=== PATIENT | female | born 1955 | race Caucasian/White ===

== ENCOUNTER 2019-12-22 09:15 | Observation (INO) | payer BC, SELFPAY ==
[2019-12-22] VITALS (13 sets, daily range): BP systolic 104–148; BP diastolic 69–92; PULSE 58–138; RESP 12–20; TEMP 35.7–36.6; O2SAT 97–100; BMI 24.5
--- NOTE | ~2019-12-22 | XR_ITS ---
XR chest 2V DATE: 12/22/2019 09:56 INDICATION: Palpitations TECHNIQUE: PA and lateral views COMPARISON: 10/25/2013 PA and lateral chest FINDINGS: There is old pulmonary granulomatous disease. No pulmonary infiltrate or consolidation, ple ural effusion or pulmonary vascular congestion or pneumothorax is detected. Normal heart size. No hilar or mediastinal enlargement. There is minimal aortic unfolding. There is degenerative spurring of the thoracic spine. IMPRESSION: No active cardiopulmonary disease Reviewed, dictated and finalized at location A.
--- NOTE | 2019-12-22 09:19 | ECG_ITS ---
Measurements Intervals [place] Rate: 135 P: [place]: 0 QRS: 51 QRSD: 169 T: 0 QT: 229 QTc: 343 Interpretive Statements ATRIAL FLUTTER/TACHYCARDIA WITH RAPID VENTRICULAR RESPONSE INTRAVENTRICULAR CONDUCTION DELAY ST-T WAVE ABNORMALITY IN ANTEROLAT/INF LEADS- CONSIDER ISCHEMIA BASELINE ARTIFACT- I, II, III, AVL ABNORMAL ECG Electronically Signed On 12-22-2019 16:31:33 CDT by Umberto Sepulveda D.O.
--- NOTE | 2019-12-22 09:26 | ED.ARRPALP ---
HPI - Arrhythmia/Palpitations General Chief Complaint: Arrhythmia/Palpitations Stated Complaint: Palpatations Time Seen by Provider: 12/22/19 09:26 Source: patient Mode of arrival: ambulatory Limitations: no limitations History of Present Illness HPI narrative: A 64 y/o female presents to the ED with c/o heart palpitations since 6:30 AM this morning. Pt states that she awoke with her symptoms and measured her HR to be in the 130s. Pt called her PCP who advised her to present to the ED for evaluation. Pt is unsure if her heartbeat was irregular at the time stating it just felt like something wasn't working right. Pt does not have a history of similar episodes. Pt also c/o a HUNTLEY that began shortly after the palpitations began. She denies CP, SOB, a fever, and any recent changes in her medications. Onset (ago): hour(s) (6:30 AM) Context: awoke with symptoms Associated symptoms: other (HUNTLEY) Related Data Home Medications Medication Instructions Recorded Confirmed alprazolam [Xanax] 0.25 mg PO TID PRN 12/22/19 12/22/19 alprazolam [Xanax] See Rx Instructions .ROUTE .COMPLEX 12/22/19 12/22/19 diclofenac sodium 75 mg PO Q12H 12/22/19 12/22/19 tramadol 50 mg PO Q12H 12/22/19 12/22/19 Allergies Allergy/AdvReac Type Severity Reaction Status Date / Time codeine Allergy Unknown Unknown Verified 12/22/19 14:28 hydrocodone Allergy Unknown Unknown Verified 12/22/19 14:28 animal dander Allergy Itching Verified 12/22/19 14:29 Review of Systems Review of Systems: All systems reviewed & are unremarkable except as noted in HPI and below Constitutional: Constitutional: Denies fever(s) Cardiovascular: Cardiovascular: Denies chest pain Comments: Reports: heart palpitations Respiratory: Respiratory: Denies dyspnea Neurologic: Reports headache(s) [facility] Past Medical History Medical History (Updated 12/22/19 @ 15:38 by Chip Harris MD) Anxiety Depression Hypothyroidism Osteoarthritis Osteoporosis Seasonal allergies Surgical History Surgical History (Updated 12/22/19 @ 15:05 by Clair Pizarro PA-C) History of hysterectomy History of left breast biopsy Pathology revealed benign fibroadenoma. History of repair of congenital cleft palate History of tubal ligation Family History Family History Father Family history of alcoholism Patient's father is Family history of osteoporosis Depression Family history of heart disease in male family member before age 55, Onset Age: 65 Mother Patient's mother is Depression Patient's mother is in good health, Onset Age: 51 Family history of alcoholism Family history of arthritis Sibling Patient's brother is Social History Social History (Updated 12/22/19 @ 15:09 by Clair Pizarro PA-C) Social History: The patient lives in [place]. 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 She designates her son, Shay, and [id number] Ene, as her surrogate decision makers and she wishes to be a full code. She is a lifelong nonsmoker and denies alcohol and drug abuse. Spiritual care concerns: No Agree to blood products: Yes Comments PCP: Dr. Juarez Exam Narrative: Exam Narrative: Constitutional: healthy appearing, no acute distress, well nourished HENMT: lip normal, MM moist Respiratory: normal respiratory effect, clear to auscultation bilaterally Cardiovascular: tachycardic, regular rhythm, no murmur GI: soft, non-tender, normal bowel sounds Back/Spine/Pelvis: Full ROM Skin: normal color, dry skin, warm Neurological: A&Ox3, normal speech Extremities: full ROM Psych: mental status grossly normal, normal affect Course Reevaluation(s) Reevaluation #1: Discussed case with Dr. Carrasco and he will see the pt. Date: 12/22/19 Time: 10:46 Reevaluation #2: Discussed case with Dr. Heck and accepted admission. Date: 12/22/19 Time: 10:48 Vital Sign
[2019-12-22 09:43] LABS: Basophils Percent Auto 0.4 % (0.2-1.2); Eosinophils Absolute Auto 0.1 K/mm3 (0-0.3); Eosinophils Percent Auto 1.9 % (0-4.4); Hematocrit 44.7 % (37.0-47.0); Hemoglobin 14.3 g/dL (12.0-15.0); Immature Granulocyte Absolute 0.01 K/mm3 (0.00-0.031); Immature Granulocyte Percent A 0.2 % (0-0.5); Lymphocytes Absolute Auto 1.39 K/mm3 (0.9-3.2); Lymphocytes Percent Auto 29.3 % (18.3-44.2); Mean Corpuscular Hemoglobin 31.4 pg (26-34); Mean Corpuscular Volume 98.2 fl (80-100); Mean Platelet Volume 11.1 fl (7.4-10.4); Monocytes Absolute Auto 0.4 K/mm3 (0.1-0.6); Monocytes Percent Auto 7.4 % (2.6-8.5); Neutrophils Absolute Auto 2.9 K/mm3 (1.3-6.7); Neutrophils Percent Auto 60.8 % (45.5-73.1); Platelet Count Result 210 k/mm3 (150-375); Red Blood Count 4.55 M/mm3 (4.2-5.4); Red Cell Distribution Width 13.3 % (11.5-14.5); White Blood Count 4.8 K/mm3 (4.5-10.0)
[2019-12-22 09:55] LABS: INR 0.9; Prothrombin Time 12.2 Seconds (11.1-14.7)
[2019-12-22 09:56] LABS: Blood Urea Nitrogen 17 mg/dL (7-17); Calcium 9.5 mg/dL (8.4-10.2); Carbon Dioxide 28 mmol/L (22-30); Chloride 105 mmol/L (98-107); Estimated CRCL calculation 62 ml/min; Estimated Glomerular Filt Rate > 60; Glucose 105 mg/dL (65-105); Partial Thromboplastin Time 36.2 SECONDS (22.3-36.8); Potassium 3.8 mmol/L (3.4-5.0); Sodium 139 mmol/L (137-145)
[2019-12-22] MEDS: ASPIRIN 81 MG CHEWABLE TABLET 324 MG PO (10:01)
[2019-12-22 10:08] LABS: Troponin I < 0.012 ng/mL (0.000-0.034)
[2019-12-22 12:59] LABS: Troponin I 0.012 ng/mL (0.000-0.034)
[2019-12-22] MEDS: ACETAMINOPHEN 500 MG TABLET 1000 MG PO (13:08)
--- NOTE | 2019-12-22 14:37 | ADMGEN ---
This patient, Sunni Haro, was admitted to IMU Room 213-01 @ 1340. Monitor on SR 80's. IV diltiazem infusing at 5mg/hr ; denies any pain at this time. Patient/to hospital policies and general routines including ID bracelet, bed and alarms, visiting hours, pain management, procedures, bathroom and other care routines, personal items, smoking policy, room service/diet, and visiting hours. Valuables list has been completed. Information on how to activate the Rapid Response Team has been discussed. Patient encouraged to report perceived risks to care and to ask questions if they do not understand what they are told or what they should do.
--- NOTE | 2019-12-22 15:00 | ECG_ITS ---
Measurements Intervals [place] Rate: 73 P: 48 [place]: 135 QRS: 48 QRSD: 94 T: 27 QT: 365 QTc: 404 Interpretive Statements SINUS RHYTHM BORDERLINE ST-T WAVE ABNORMALITY- INFERIOR LEADS BASELINE ARTIFACT- I, II, III, AVR, AVL, AVF BORDERLINE ECG Electronically Signed On 12-22-2019 16:36:01 CDT by Umberto Sepulveda D.O.
--- NOTE | 2019-12-22 15:30 | PM.IMHP ---
H&P: HPI History of Present Illness Chief complaint: Palpitations. Narrative: Sunni Haro is a 64 year old female with hypothyroidism and anxiety who presented to the emergency department earlier this morning via private vehicle from home for evaluation of palpitations. She awoke this morning at approximately 06:30 with palpitations and fluttering in her chest and throat. She used her 's pulse oximeter and notes that her heartbeat was irregular, 130-150 beats per minute. Very rarely over the years she has what she describes as a ?skipped beat? but this was different today. She had no other symptoms with that, specifically denying lightheadedness, dizziness, chest pain, pleuritic pain, shortness of breath, nausea, and sweats. On arrival to the emergency department, she was found to be in atrial fibrillation with rapid ventricular response and has since converted to a normal sinus rhythm after being started on a Cardizem drip. She has no history of atrial fibrillation. She has not had any recent change in medications and TSH level today is within normal limits. No significant alcohol intake. She does not really drink caffeinated beverages but does take 1/2 of a caffeine pill most days, for unclear reasons. She reports feeling increasingly stressed and anxious over the last 2 days, but cannot pinpoint why she has felt that way. Review of Systems Review of Systems: Narrative: Twelve systems were reviewed with pertinent positives and negatives as per HPI. She is complaining of a pretty significant posterior headache, without much improvement after taking Tylenol. She has a longstanding history of headaches however they ceased after she started menopause. No numbness or tingling. She denies focal weakness. No fever, chills, or sweats. No recent cold or flu symptoms. Weight has remained stable. No concerns for sleep apnea. She has occasional lower extremity edema, which resolves by morning. No known history of cardiac disease. No exertional chest pain or shortness of breath. Except as documented, all other systems were reviewed and are negative. [facility] Past Medical History Medical History (Updated 12/22/19 @ 21:12 by Clair Pizarro PA-C) Anxiety Depression GERD (gastroesophageal reflux disease) Hypothyroidism Osteoarthritis Osteoporosis Seasonal allergies Surgical History Surgical History (Updated 12/22/19 @ 15:05 by Clair Pizarro PA-C) History of hysterectomy History of left breast biopsy Pathology revealed benign fibroadenoma. History of repair of congenital cleft palate History of tubal ligation Family History Family History Father Family history of alcoholism Patient's father is Family history of osteoporosis Depression Family history of heart disease in male family member before age 55, Onset Age: 65 Mother Patient's mother is Depression Patient's mother is in good health, Onset Age: 51 Family history of alcoholism Family history of arthritis Sibling Patient's brother is Social History Social History (Updated 12/22/19 @ 21:10 by Clair Pizarro PA-C) Social History: The patient lives in [place] with her , Kristopher. 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 She designates her son, Shay as her surrogate decision makers and she wishes to be a full code. She is a lifelong nonsmoker and denies alcohol and drug abuse. Spiritual care concerns: No Agree to blood products: Yes Meds Home Medications and Allergies Home Medications Medication Instructions Recorded Confirmed Type amitriptyline 25 mg tablet 25 mg PO ONCE #180 tablet 08/19/19 12/22/19 Rx levothyroxine 150 mcg tablet 150 mcg PO DAILY #90 tablet 10/28/19 12/22/19 Rx alprazolam [Xanax] 0.25 mg PO TID PRN 12/22/19 12/22/19 History alprazolam [Xanax] See Rx Instructions .ROUTE .COMPLEX 0
[2019-12-22 16:04] LABS: Troponin I 0.016 ng/mL (0.000-0.034)
[2019-12-22] MEDS: METOPROLOL TARTRATE 12.5 MG TABLET PO (18:06)
[2019-12-22] MEDS: ALPRAZOLAM 0.25 MG TABLET PO (20:07)
[2019-12-22] MEDS: AMITRIPTYLINE HCL 25 MG TABLET PO (20:09)
[2019-12-23] VITALS (8 sets, daily range): BP systolic 103–145; BP diastolic 60–76; PULSE 64–90; RESP 16–20; TEMP 36.1–36.9; O2SAT 98–100
[2019-12-23] MEDS: LEVOTHYROXINE SODIUM 150 MCG TABLET PO (06:11)
--- NOTE | 2019-12-23 09:46 | PM.CNCAR ---
Assessment and Plan Assessment and plan (1) Atrial fibrillation with RVR: Code(s): I48.91 - Unspecified atrial fibrillation Status: Acute Assessment and Plan: Converted back to sinus rhythm with diltiazem. She has Felix Vasc score of 1 because of gender only. She does not need full anticoagulation. Aspirin 81 mg p.o. daily is recommended. Metoprolol 12.5 mg p.o. b.i.d. to be continued. 2D echocardiogram is ordered and will be reviewed. It is advised that she reduce her caffeine intake. She is okay for discharge and follow-up in the office in 3 months or sooner as clinically indicated. Outpatient stress test will be performed (2) Hypothyroidism: Code(s): E03.9 - Hypothyroidism, unspecified Status: Acute Assessment and Plan: Continue replacement (3) Depression: Code(s): F32.9 - Major depressive disorder, single episode, unspecified Status: Acute (4) Anxiety: Code(s): F41.9 - Anxiety disorder, unspecified Status: Acute History of Present Illness History of Present Illness Consult date/time: 12/23/19 09:46 Requesting physician: Clair Pizarro PA-C Consult reason: atrial fibrillation Reason For Visit: Palpitations. Narrative: Date of service 12/23/2019 Reason for admission, palpitation, atrial flutter/tachycardia History patient is a 64-year-old female who woke up acutely with palpitations and fluttering in her chest and throat. She did check her heart be using her 's pulse oximeter and it was beating between 103 and 150 beats per minute. She is under more stress as await in part because of her 's health concerns as well as obvious hurley virus Situation. She came to the hospital, started on a Cardizem drip after being found to be in atrial fibrillation with rapid ventricular response. She has since converted to sinus rhythm sinus feeling fine at this point. She denies any chest pain, shortness of breath, syncope, presyncope, paroxysmal nocturnal dyspnea, orthopnea, edema palpitations. She does take caffeine supplements rather than drink coffee or tea Review of Systems Review of Systems: All systems reviewed & are unremarkable except as noted in HPI and below Constitutional: Constitutional: Reports lethargy Eyes: Eyes: Denies blurry vision ENT: Denies Normal hearing present Cardiovascular: Cardiovascular: Denies chest pain Respiratory: Respiratory: Denies wheezing Gastrointestinal: Gastrointestinal: Denies abdominal pain Genitourinary: Genitourinary: Denies flank pain Musculoskeletal: Musculoskeletal: Denies back pain and Denies neck pain Integumentary/Breasts: Skin/Breast: Denies dry skin Neurologic: Denies headache(s) Psychiatric: Psychiatric: Denies anxiety and Denies confusion Endocrine: Endocrine: Denies fatigue and Denies flushing Hematologic/Lymphatic: Hematologic/Lymphatic: Denies easy bleeding and Denies easy bruising Allergic/Immunologic: Allergic/Immunologic: Denies GI upset with certain foods PMFSH Past Medical History Medical History (Updated 12/22/19 @ 21:12 by Clair Pizarro PA-C) Anxiety Depression GERD (gastroesophageal reflux disease) Hypothyroidism Osteoarthritis Osteoporosis Seasonal allergies Surgical History Surgical History (Updated 12/22/19 @ 15:05 by Clair Pizarro PA-C) History of hysterectomy History of left breast biopsy Pathology revealed benign fibroadenoma. History of repair of congenital cleft palate History of tubal ligation Family History Family History Father Family history of alcoholism Patient's father is Family history of osteoporosis Depression Family history of heart disease in male family member before age 55, Onset Age: 65 Mother Patient's mother is Depression Patient's mother is in good health, Onset Age: 51 Family history of alcoholism Family histo
[2019-12-23] MEDS: METOPROLOL TARTRATE 12.5 MG TABLET PO (09:52)
[2019-12-23] MEDS: ASPIRIN 81 MG CHEWABLE TABLET PO (09:52)
[2019-12-23] MEDS: KETOROLAC 30 MG/ML VIAL (*BKC) IV PUSH (09:52)
--- NOTE | 2019-12-23 09:52 | PM.DS ---
DS: Diagnosis Admitting Diagnosis Admitting Diagnosis: Unspecified atrial fibrillation Discharge Diagnosis (1) Atrial fibrillation with rapid ventricular response: Code(s): I48.91 - Unspecified atrial fibrillation Status: Acute Assessment and Plan: Started on Cardizem drip in the emergency department, now in a normal sinus rhythm. Now tolerating low dose metoprolol Chads Vasc 2 score is 1, thus no indication for anticoagulation. Echocardiogram unremarkable (2) Hypothyroidism: Code(s): E03.9 - Hypothyroidism, unspecified Status: Acute Assessment and Plan: TSH today is 1.010. Continue levothyroxine. (3) Depression: Code(s): F32.9 - Major depressive disorder, single episode, unspecified Status: Acute Assessment and Plan: Continue amitriptyline. (4) Anxiety: Code(s): F41.9 - Anxiety disorder, unspecified Status: Acute Assessment and Plan: Continue alprazolam as needed. DS: Summary Hospital Course Reason for hospitalization: Palpitations Hospital Course: Patient presented the emergency department for palpitations. No chest pain dizziness edema shortness of breath syncope or presyncope. Found to be in atrial fibrillation with rapid ventricular rate. Started on Cardizem drip after bolus. Converted to sinus rhythm. Transitioned the following morning to low-dose metoprolol 12.5 mg every 12 hours. Remained in sinus rhythm. Echocardiogram was unremarkable. She wished to go home and follow-up as an outpatient. Status at Discharge Functional status at discharge: independent ambulation Overall status at discharge: patient is back to baseline Time Spent with Patient Time attestation: Total time spent providing and/or coordinating discharge services: 38 min Exam Narrative: Exam Narrative: HEENT: EOMI, PERRL, sclerae nonicteric, pharyngeal mucosa pink and intact NECK: No JVD, adenopathy, or thyromegaly CHEST: Clear to auscultation. Normal effort. HEART: NL S1/S2, regular, no murmur ABDOMEN: BS+, soft, nontender, no mass, no bruits EXTREMITIES: No cyanosis, edema, or clubbing NEUROLOGIC: CN intact and symmetric to inspection. MUSCULOSKELETAL: Tone and strength symmetric. PSYCH: Alert. Oriented to person, place, and time. DS: Data Data Completed and Pending Labs on day of discharge: Labs from last 24 hours 12/22/19 12/22/19 12/22/19 15:35 12:28 09:38 PT INR APTT Sodium Potassium Chloride Carbon Dioxide BUN Creatinine Estim Creat Clear Calc Estimated GFR Glucose Calcium Troponin I 0.016 D 0.012 TSH 1.010 12/22/19 12/22/19 09:38 09:38 PT 12.2 INR 0.9 APTT 36.2 Sodium 139 Potassium 3.8 Chloride 105 Carbon Dioxide 28 BUN 17 Creatinine 0.70 Estim Creat Clear Calc 62 Estimated GFR > 60 Glucose 105 Calcium 9.5 Troponin I < 0.012 TSH Discharge Plan Discharge Consulting providers: Vinayak Carrasco Discharging Clinician: Yaya Gonzalez Patient Disposition: Home, Self-Care Activity: as tolerated Diet: regular Discharge Instructions: CARDIOLOGY DISCHARGE INSTRUCTIONS: ACTIVITY: Activity with precautions to avoid falls. Rise slowly from a seated or lying position. FOLLOW-UP: Follow-up with primary care provider 1-2 weeks Follow up with [facility], [place] office at [facility] [address] Cardenas on March 30, 2020 12:00 p.m.. Please arrive by 11:45 p.m. for your appointment. Bring photo ID, insurance card(s) and current medication list. Sign up for [id number]. The activation code is on your appointment confirmation. In your discharge packet new patient paperwork has been provided. Please complete all forms and return them to the office either in person or by mail BEFORE your scheduled appointment. If we do not receive the forms BEFORE your appointment
--- NOTE | 2019-12-23 21:16 | ECHO_ITS ---
Patient Info Name: Sunni Haro Age: 64 years : 1955 Gender: Female Ht: 64 in Wt: 143 lbs BSA: 1.72 m2 HR: 75 bpm BP: 109 / 76 mmHg Heart Rhythm: Sinus Rhythm Technical Quality: Good Exam Date: 12/23/2019 9:41 AM Exam Location: [facility] Patient Status: Inpatient Admit Date: 12/22/2019 Staff Ordering Physician: Clair Pizarro PA-C Doll Wigs Hackler: Tez Badillo RDCS Attending Provider: Dawood Heck MD Referring Physician: Juarez LEE; Exam Type: CA echo doppler color flow Study Info Indications I48.0 - Paroxysmal atrial fibrillation Complete two-dimensional, color flow and Doppler transthoracic echocardiogram is performed. Strain analysis performed. History/Risk Factors Afib, palpitations. Summary 1. Left ventricular chamber dimension is normal. 2. Left ventricular systolic function is normal, estimated at 60-65%. 3. There is no increased left ventricular wall thickness. 4. Left ventricular septal wall motion is normal. 5. The left ventricular diastolic function is grade I diastolic dysfunction. 6. Left atrial chamber dimension is mildly enlarged. 7. There is mild aortic valve regurgitation. 8. There is mild mitral valve regurgitation. 9. There is mild tricuspid valve regurgitation. Left Ventricle Left ventricular chamber dimension is normal. Left ventricular systolic function is normal, estimated at 60-65%. There is no increased left ventricular wall thickness. Left ventricular septal wall motion is normal. The left ventricular diastolic function is grade I diastolic dysfunction. Right Ventricle Right ventricular chamber dimension is normal. Right ventricular systolic function is normal. Left Atria Left atrial chamber dimension is mildly enlarged. Right Atria Right atrial chamber dimension is normal. Aortic Valve The aortic valve is trileaflet. There is mild aortic valve sclerosis. There is no aortic valve stenosis. There is mild aortic valve regurgitation. Pulmonic Valve The pulmonic valve is normal. There is no pulmonic valve stenosis. There is trace pulmonic regurgitation. Mitral Valve The mitral valve has normal leaflets. There is no mitral valve stenosis. There is mild mitral valve regurgitation. Tricuspid Valve The tricuspid valve leaflets are normal. There is no significant tricuspid valve stenosis. There is mild tricuspid valve regurgitation. Pericardium/Pleural The pericardium appears normal. There is no pericardial effusion. Inferior Vena Cava Normal inferior vena cava with <50% collapse upon inspiration consistent with elevated right atrial pressure, 5 mmHg. Aorta The aortic root size at the sinus of Valsalva is normal. The prox ascending aorta size is normal. Left Ventricular Outflow Tract Name Value Normal LVOT 2D LVOT Diameter 2.1 cm LVOT Doppler LVOT Peak Gradient 6 mmHg LVOT Mean Gradient 3 mmHg LVOT VTI 21 cm LVOT VTI/AV VTI Ratio 0.8 LVOT Stroke Volume
== END 2019-12-23 13:10 | disposition home or self-care (01) ==
LOC: ANHED 11:00 → ANHIMU 15:38
PROVIDERS: Admitting Provider Internal Medicine; Emergency Provider Emergency Medicine; PCP Internal Medicine; Visit Provider Internal Medicine
DX: I48.91 Unspecified atrial fibrillation (principal); E03.9 Hypothyroidism, unspecified; F41.9 Anxiety disorder, unspecified; F32.9 Major depressive disorder, single episode, unspecified; M81.0 Age-related osteoporosis without current pathological fracture; Z79.899 Other long term (current) drug therapy
CPT/HCPCS: 36415; 71046; 80048; 84443; 84484; 85025; 85610; 85730; 93005; 93306; 96365; 96366; 96375; 96376; 99285; A9270; G0378; J1885

== ENCOUNTER 2020-04-11 00:33 | Emergency (ER) | payer BC, SELFPAY ==
[2020-04-11 00:40] VITALS: BP 132/96; PULSE 86; RESP 18; TEMP 36.2; O2SAT 100
--- NOTE | 2020-04-11 00:53 | ED.EPISTAXIS ---
HPI - Epistaxis General Chief complaint: Epistaxis Stated complaint: nose bleed Time Seen by Provider: 04/11/20 00:52 Source: patient and family Mode of arrival: ambulatory Limitations: no limitations History of Present Illness HPI Narrative: Patient is a 64-year-old female with a history of rhinoplasty who presents for evaluation of nosebleed. Patient has intermittent nosebleed over the past 3 days, but reportedly had increased amount of blood present this afternoon. Patient reports was gushing blood. It resolved but then recurred again this evening. Patient has felt somewhat lightheaded and dizzy. She has been nauseated and reports swallowing the blood. Patient states that she has a history of recurrent nosebleeds after trauma to the face following a rhinoplasty. 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 She is not anticoagulated. No history of hypertension. Related Data Allergies Allergy/AdvReac Type Severity Reaction Status Date / Time codeine Allergy Unknown Unknown Verified 04/11/20 00:56 hydrocodone Allergy Unknown Unknown Verified 04/11/20 00:56 animal dander Allergy Itching Verified 04/11/20 00:56 Review of Systems Review of Systems: Narrative: CONSTITUTIONAL: Denies fever, chills, or sweats. EYES: Denies visual changes, redness, or discharge. ENT: Reports epistaxis, rhinorrhea. CARDIOVASCULAR: Denies chest pain, palpitations, or edema. RESPIRATORY: Denies cough or dyspnea. GASTROINTESTINAL: Denies abdominal pain, reports nausea and vomiting GENITOURINARY: Denies dysuria or hematuria. SKIN: Denies rash or itching. MUSCULOSKELETAL: Denies back pain, joint pain, or myalgia. NEUROLOGIC: Denies headache, numbness, reports weakness and lightheadedness COUNTS INCLUDE 234 BEDS AT THE [facility] Past Medical History Medical History (Updated 04/11/20 @ 02:30 by Jaylene Branch MD) Anxiety Atrial fibrillation with RVR Depression GERD (gastroesophageal reflux disease) Hypothyroidism Osteoarthritis Osteoporosis Seasonal allergies Surgical History Surgical History (Updated 04/11/20 @ 01:29 by Jaylene Branch MD) H/O rhinoplasty History of hysterectomy History of left breast biopsy Pathology revealed benign fibroadenoma. History of repair of congenital cleft palate History of tubal ligation Family History Family History Father Family history of alcoholism Patient's father is Family history of osteoporosis Depression Family history of heart disease in male family member before age 55, Onset Age: 65 Mother Patient's mother is Depression Patient's mother is in good health, Onset Age: 51 Family history of alcoholism Family history of arthritis Sibling Patient's brother is Social History Social History Social History: The patient lives in [place] with her , Kristopher. 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 She designates her son, Shay as her surrogate decision makers and she wishes to be a full code. She is a lifelong nonsmoker and denies alcohol and drug abuse. Spiritual care concerns: No Agree to blood products: Yes Exam Narrative: Exam Narrative: GENERAL: Awake, alert, conversant HEAD: Normocephalic, atraumatic. EYES: PERRLA and EOMI. ENT: Nares clear, no rhinorrhea, positive epistaxis from the left naris. Mucous membranes moist. Blood present in the oropharynx. Patient tolerating her secretions. NECK: Supple. CHEST: No respiratory distress, breathing even and non labored HEART: Regular rate, sinus rhythm ABDOMEN:Non distended, non tender EXTREMITIES: Normal range of motion. No edema. SKIN: Warm, dry, no rash. NEURO:No focal deficits. Alert and oriented x3 Course Vital Signs Vital signs: Vital Signs Temperature 36.2 C L 04/11/20 00:40 Pulse Rate 86 04/11/20 00:40 Respiratory Rate 18 04/11/20 00:40 Blood
[2020-04-11] MEDS: ONDANSETRON INJ 4 MG/2 ML VIAL IV PUSH (01:34)
[2020-04-11] MEDS: OXYMETAZOLINE HCL 0.05% NAS 15 ML BTL (*BKC) 1 SPRAY NASAL (01:36)
[2020-04-11] MEDS: SODIUM CHLORIDE 0.9% IV 1,000 ML 999 ML IV CONT (01:36)
[2020-04-11 01:47] LABS: Basophils Percent Auto 0.5 % (0.2-1.2); Eosinophils Absolute Auto 0.2 K/mm3 (0-0.3); Eosinophils Percent Auto 2.3 % (0-4.4); Hematocrit 37.1 % (37.0-47.0); Hemoglobin 12.1 g/dL (12.0-15.0); Immature Granulocyte Absolute 0.02 K/mm3 (0.00-0.031); Immature Granulocyte Percent A 0.3 % (0-0.5); Lymphocytes Absolute Auto 2.47 K/mm3 (0.9-3.2); Lymphocytes Percent Auto 33.7 % (18.3-44.2); Mean Corpuscular HGB Conc 32.6 g/dl (32-36); Mean Corpuscular Volume 98.1 fl (80-100); Mean Platelet Volume 10.8 fl (7.4-10.4); Monocytes Absolute Auto 0.5 K/mm3 (0.1-0.6); Monocytes Percent Auto 6.1 % (2.6-8.5); Neutrophils Absolute Auto 4.2 K/mm3 (1.3-6.7); Neutrophils Percent Auto 57.1 % (45.5-73.1); Platelet Count Result 280 k/mm3 (150-375); Red Blood Count 3.78 M/mm3 (4.2-5.4); Red Cell Distribution Width 12.6 % (11.5-14.5); White Blood Count 7.3 K/mm3 (4.5-10.0)
[2020-04-11 02:01] LABS: Anion Gap 13.1 mmol/L (7-16); Blood Urea Nitrogen 30 mg/dL (7-17); Calcium 9.2 mg/dL (8.4-10.2); Carbon Dioxide 22 mmol/L (22-30); Chloride 109 mmol/L (98-107); Estimated Glomerular Filt Rate > 60; Glucose 127 mg/dL (65-105); Potassium 4.1 mmol/L (3.4-5.0); Sodium 140 mmol/L (137-145)
[2020-04-11 02:27] VITALS: BP 103/58; PULSE 65; RESP 20; O2SAT 100
[2020-04-11 02:33] VITALS: BP 113/69; PULSE 67; RESP 20; O2SAT 99
== END 2020-04-11 03:05 | disposition home or self-care (01) ==
PROVIDERS: Emergency Provider Emergency Medicine; PCP Internal Medicine
DX: R04.0 Epistaxis (principal); K21.9 Gastro-esophageal reflux disease without esophagitis; E03.9 Hypothyroidism, unspecified; M19.90 Unspecified osteoarthritis, unspecified site; M81.0 Age-related osteoporosis without current pathological fracture; I48.91 Unspecified atrial fibrillation; Z79.82 Long term (current) use of aspirin
CPT/HCPCS: 36415; 80048; 85025; 86850; 86900; 86901; 96361; 96374; 99284; A9270; J2405; J7030

== ENCOUNTER 2020-05-29 16:51 | Outpatient (CLI) | payer BC, SELFPAY ==
--- NOTE | ~2020-05-29 | XR_ITS ---
EXAMINATION: XR chest 2V EXAM DATE: 05/29/2020 17:18 INDICATION: COVID-19 positive. Cough. TECHNIQUE: Frontal and lateral projections of the chest obtained and reviewed. Comparison is made to prior examination from 12/22/2019. FINDINGS: There are some small bilateral upper lung zone linear nodular opacities and less well-defi jericho small amount of basilar groundglass opacity suspected. Probably acute infectious process given th e history provided. These are new compared to December. No pneumothorax or pleural effusion. Cardiomedia stinal silhouette is normal. Mild thoracal lumbar scoliosis. IMPRESSION: 1. Scattered small opacities, could be acute lung injury. Reviewed, dictated and finalized at location A.
== END 2020-05-29 16:52 | disposition home or self-care (01) ==
PROVIDERS: PCP Internal Medicine; Visit Provider Internal Medicine
DX: U07.1 COVID-19 (principal); R05 Cough
CPT/HCPCS: 71046

== ENCOUNTER 2020-07-16 08:38 | Outpatient (CLI) | payer BC, SELFPAY ==
[2020-07-16 09:33] LABS: Anion Gap 5 mmol/L (8-16); Blood Urea Nitrogen 24 mg/dL (7-17); Calcium 9.6 mg/dL (8.4-10.2); Carbon Dioxide 32 mmol/L (22-30); Chloride 105 mmol/L (98-107); Cholesterol 164 mg/dL (0-200); Estimated Glomerular Filt Rate > 60; Glucose 85 mg/dL (65-105); HDL Direct 74 mg/dL; Potassium 4.7 mmol/L (3.4-5.0); Sodium 142 mmol/L (137-145); Triglycerides 39 mg/dL (<150)
[2020-07-16 09:44] LABS: LDL Cholesterol Direct 64 mg/dL
== END 2020-07-16 08:39 | disposition home or self-care (01) ==
PROVIDERS: PCP Internal Medicine; Visit Provider Internal Medicine
DX: I48.91 Unspecified atrial fibrillation (principal); Z13.220 Encounter for screening for lipoid disorders; E03.9 Hypothyroidism, unspecified
CPT/HCPCS: 36415; 80048; 80061; 84443

== ENCOUNTER 2020-07-24 11:32 | Outpatient (NON) | payer BC, SELFPAY ==
[2020-07-25 01:31] LABS: SARS-CoV-2 RNA PCR Negative
== END 2020-07-24 11:33 ==
LOC: ANHCOVIDDT 11:34
PROVIDERS: PCP Internal Medicine; Visit Provider Internal Medicine
DX: Z20.828 Contact with and (suspected) exposure to other viral communicable diseases (principal); R68.89 Other general symptoms and signs
CPT/HCPCS: 87635; C9803; U0003

== ENCOUNTER 2020-09-03 15:29 | Outpatient (CLI) | payer BC, SELFPAY ==
--- NOTE | ~2020-09-03 | MM_ITS ---
EXAMINATION: MM screening [facility] BI w beka HISTORY: Screening mammogram TECHNIQUE: Craniocaudal and mediolateral oblique 3-D tomosynthesis images were obtained and synthetic 2-D images were generated. CAD analysis was submitted and interpreted. COMPARISON: 02/04/2019, 01/27/2009 BREAST PARENCHYMAL COMPOSITION: There are scattered areas of fibroglandular density. FINDINGS: There is no evidence of suspicious mass, calcification, or architectural distortion to sugg est malignancy in either breast. There has been no suspicious interval change. IMPRESSION: 1. No mammographic evidence of malignancy. 2. Recommend routine screening mammography in one year. BI-RADS Category 1: Negative Reviewed, dictated and finalized at location A. 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
== END 2020-09-03 15:30 | disposition home or self-care (01) ==
LOC: ANHIMG 15:30
PROVIDERS: PCP Internal Medicine; Visit Provider Obstetrics & Gynecology
DX: Z12.31 Encounter for screening mammogram for malignant neoplasm of breast (principal)
CPT/HCPCS: 77063; 77067

== ENCOUNTER 2021-01-28 13:18 | Outpatient (CLI) | payer BC, SELFPAY ==
--- NOTE | ~2021-01-28 | XR_ITS ---
EXAMINATION: XR_CERV2-3V_CR EXAM DATE: 01/28/2021 13:51 INDICATION: No known recent injury provided at this time. Pain of the neck. TECHNIQUE: Cervical spine frontal lateral projections. Open-mouth odontoid projection. Comparison is made to prior examination from 06/14/2011. FINDINGS: There is moderate loss of the C5-6 disc height, mild to moderate at C4-5. There is 2 mm an terolisthesis C2 on C3. The vertebral bodies are otherwise aligned. There is overall moderate cervica l facet and uncovertebral joint arthropathy, with evidence of neural foraminal stenosis at C5-6 and C 6-7. Lung apices are clear. The odontoid process is intact. The lateral masses of C1 line up with C2 . Prevertebral soft tissue and pre-dens space are within normal limits. IMPRESSION: Overall moderate cervical spondylosis. Reviewed, dictated and finalized at location A.
[2021-01-28 14:06] LABS: Rheumatoid Factor < 8.6 IU/ML (<12)
[2021-01-28 14:12] LABS: Anion Gap 2 mmol/L (8-16); Blood Urea Nitrogen 23 mg/dL (7-17); Calcium 10.2 mg/dL (8.4-10.2); Carbon Dioxide 36 mmol/L (22-30); Chloride 102 mmol/L (98-107); Estimated Glomerular Filt Rate > 60; Glucose 105 mg/dL (65-105); Potassium 4.3 mmol/L (3.4-5.0); Sodium 140 mmol/L (137-145)
[2021-01-28 14:51] LABS: Erythrocyte Sedimentation Rate 21 mm/hr (0-20)
[2021-01-31 19:29] LABS: CRP, High Sensitivity 0.4 mg/L (***)
[2021-02-01 14:26] LABS: Anti Cyclic Citrullinated Pept <16 Units (<20)
[2021-02-01 22:54] LABS: Anti Nuclear Antibody Titer >=1:1280 (Negative)
== END 2021-01-28 13:19 | disposition home or self-care (01) ==
LOC: ANHLAB 13:23
PROVIDERS: PCP Internal Medicine; Visit Provider Nurse Practitioner
DX: Z13.6 Encounter for screening for cardiovascular disorders (principal); E03.9 Hypothyroidism, unspecified; M25.50 Pain in unspecified joint; M47.892 Other spondylosis, cervical region
CPT/HCPCS: 36415; 72040; 80048; 84443; 85652; 86038; 86039; 86141; 86200; 86430

== ENCOUNTER 2021-02-02 08:14 | Outpatient (CLI) | payer BC, SELFPAY ==
--- NOTE | ~2021-02-02 | XR_ITS ---
EXAMINATION: XR UGIAC w barium swallow EXAM DATE: 02/02/2021 08:54 INDICATION: R14.0 - Abdominal distension (gaseous). TECHNIQUE: Standard single and double contrast barium esophagram and upper GI examination was perform ed by radiologist Chris Issa M.D. Pulsed dose reduction fluoroscopy was used with fluoroscopic time of 0.6. The DAP for this procedure was 0.8 Gycm2. A total of 117 images obtained for the exam. Com parison is made to prior examination from 01/28/2019. FINDINGS: The pharynx is symmetric and without evidence of mass lesion or mucosal irregularity. Ther e is no esophageal stricture, diverticulum or mass identified. Gastroesophageal junction is normal i n appearance. Reflux was not demonstrated during this examination. The stomach has a normal appearance without evidence of mass lesion, ulceration or filling defect. T here is normal rugal fold pattern. The duodenum and duodenal sweep are normal in appearance. IMPRESSION: Normal exam. Reviewed, dictated and finalized at location A. IMPRESSION: Normal exam.
== END 2021-02-02 08:15 | disposition home or self-care (01) ==
PROVIDERS: PCP Internal Medicine; Visit Provider Nurse Practitioner
DX: R14.0 Abdominal distension (gaseous) (principal)
CPT/HCPCS: 74246

== ENCOUNTER 2021-02-05 13:23 | Outpatient (CLI) | payer BC, SELFPAY ==
--- NOTE | ~2021-02-05 | MR_ITS ---
EXAMINATION: MR cervical spine wo con EXAM DATE: 02/05/2021 14:56 INDICATION: Cervicalgia. Headaches. TECHNIQUE: Multi-sequential, multiplanar MR images of the cervical spine were obtained without contra st. Axial T2, axial T2 MERGE sequence. Sagittal T1, T2, T2 fat saturation images also obtained. Th ere is no prior study for comparison. FINDINGS: Mild to moderate disc disease at C5-6, mild at C4-5. The vertebral bodies are aligned in t he AP dimension. The spinal cord signal intensity and intrinsic morphology is normal. Cervicomedullar y junction is normal in appearance. There are no suspicious marrow signal abnormalities. Paraspinal s oft tissue is unremarkable. Level by level evaluation: C2-C3: Disc does not extend beyond the endplate margin. Uncovertebral joint arthropathy: Mild right. Facet joint arthropathy: Mild to moderate bilateral. Neural foraminal stenosis: Mild right. Central canal stenosis: No stenosis. C3-C4: There is a minimal diffuse disc bulge. Uncovertebral joint arthropathy: Mild to moderate right, mild left. Facet joint arthropathy: Severe right, moderate left. Neural foraminal stenosis: Moderate right. Central canal stenosis: No stenosis. C4-C5: There is a minimal diffuse disc bulge. Uncovertebral joint arthropathy: Moderate right, mild left. Facet joint arthropathy: Moderate to severe right, moderate left. Neural foraminal stenosis: Moderate to severe right, mild left. Central canal stenosis: No stenosis. C5-C6: There is a minimal diffuse disc bulge. Uncovertebral joint arthropathy: Moderate to severe right, moderate left. Facet joint arthropathy: Moderate to severe left, moderate right. Neural foraminal stenosis: Moderate to severe right. Mild left. Central canal stenosis: No stenosis. C6-C7: There is a minimal diffuse disc bulge. Uncovertebral joint arthropathy: Moderate right, mild to moderate left. Facet joint arthropathy: Moderate to severe left, moderate right. Neural foraminal stenosis: No stenosis. Central canal stenosis: No stenosis. C7-T1: Disc does not extend beyond the endplate margin. Uncovertebral joint arthropathy: Mild bilateral. Facet joint arthropathy: Moderate to severe right, moderate left. Neural foraminal stenosis: Mild right. Central canal stenosis: No stenosis. IMPRESSION: 1. C4-5 and 5-6 moderate to severe right neural foraminal stenosis. 2. Less stenosis other neural foramen. Reviewed, dictated and finalized at location A.
== END 2021-02-05 13:24 | disposition home or self-care (01) ==
LOC: ANHIMG 13:25
PROVIDERS: PCP Internal Medicine; Visit Provider Nurse Practitioner
DX: M54.2 Cervicalgia (principal)
CPT/HCPCS: 72141

== ENCOUNTER 2021-02-09 15:00 | Outpatient (CLI) | payer BC, SELFPAY ==
[2021-02-09 16:00] LABS: Add Urine Microscopic? YES; Appearance Urine Cloudy (Clear); Bacteria Urine Trace /hpf; Bilirubin Urine Negative (Negative); Blood Urine Negative (Negative); Color Urine Yellow (Yellow); Glucose Urine UA Negative (Negative); Ketones Urine Negative (Negative); Leukocyte Esterase Ur Trace LEU/UL (Negative); Nitrate Urine Negative (Negative); Protein Urine Negative (Negative); Squamous Epithelial Cell Urine Rare /hpf (Few); Urobilinogen Urine Negative mg/dL (<2.0); WBC Urine 0-3 /hpf
== END 2021-02-09 15:01 | disposition home or self-care (01) ==
PROVIDERS: PCP Internal Medicine; Visit Provider Internal Medicine
DX: R30.0 Dysuria (principal)
CPT/HCPCS: 36415; 81001; 86225

== ENCOUNTER 2021-02-11 13:17 | Outpatient (CLI) | payer BC, SELFPAY ==
--- NOTE | ~2021-02-11 | CT_ITS ---
EXAMINATION: CT abdomen wo con DATE: 02/11/2021 14:01 INDICATION: Epigastric pain. Ventral hernia. TECHNIQUE: Computed tomography (CT) of the abdomen was performed without intravenous contrast. The do se-length product was 210.41 mGy-cm. Automated exposure control and iterative reconstruction techniqu e were employed. COMPARISON: CT dated 04/02/2009 FINDINGS: There is a supraumbilical ventral hernia containing fat. Lung bases unremarkable. Heart size normal. No significant pleural or pericardial effusion. There are calcified granulomas of the spleen. Nonobstructive bowel gas pattern. No significant vascular abnorm ality. No lymphadenopathy. The liver, pancreas, adrenal glands and kidneys are unremarkable. Moderate lumbar spondylosis with grade 1 degenerative spondylolisthesis at L5-S1. There is dextroscoliosis of the lumbar spine. IMPRESSION: 1. Supraumbilical ventral hernia containing fat. 2: No acute abnormality of the abdomen are identified. Reviewed, dictated and finalized at location A.
== END 2021-02-11 13:18 | disposition home or self-care (01) ==
PROVIDERS: PCP Internal Medicine; Visit Provider Internal Medicine
DX: K43.9 Ventral hernia without obstruction or gangrene (principal)
CPT/HCPCS: 74150

== ENCOUNTER 2021-04-08 17:07 | Outpatient (CLI) | payer BC, SELFPAY ==
[2021-04-08 18:09] LABS: Total Triiodothyronine (T3) 0.64 NG/ML (0.97-1.69)
[2021-04-08 18:11] LABS: Free T4 Free Thyroxine 1.26 ng/mL (0.78-2.19)
== END 2021-04-08 17:08 | disposition home or self-care (01) ==
LOC: ANHLAB 17:09
PROVIDERS: PCP Internal Medicine; Visit Provider Internal Medicine
DX: E03.9 Hypothyroidism, unspecified (principal)
CPT/HCPCS: 36415; 84439; 84443; 84480

== ENCOUNTER → 2021-04-23 01:20 | Outpatient (CLI) | payer BC, SELFPAY ==
[2021-04-24 21:35] LABS: SARS-CoV-2 RNA PCR Negative
== END ==
PROVIDERS: PCP Internal Medicine; Visit Provider Internal Medicine
DX: R68.89 Other general symptoms and signs (principal); Z20.822 Contact with and (suspected) exposure to COVID-19
CPT/HCPCS: C9803; U0003; U0005

== ENCOUNTER → 2021-07-28 09:02 | Outpatient (CLI) | payer BC, SELFPAY ==
[2021-07-28 18:11] LABS: SARS-CoV-2 RNA PCR Negative
== END ==
PROVIDERS: PCP Internal Medicine; Visit Provider Internal Medicine
DX: R68.89 Other general symptoms and signs (principal); Z20.822 Contact with and (suspected) exposure to COVID-19
CPT/HCPCS: C9803; U0003; U0005

== ENCOUNTER 2021-07-30 15:24 | Outpatient (CLI) | payer BC, SELFPAY ==
--- NOTE | ~2021-07-30 | XR_ITS ---
EXAMINATION: XR chest 2V EXAM DATE: 07/30/2021 15:42 INDICATION: R05.9 - Cough, congestion for one week. TECHNIQUE: Frontal and lateral projections of the chest obtained and reviewed. Comparison is made to prior examination from 05/29/2020. FINDINGS: There is left lower lobe superior segmental calcified granuloma. The lungs are otherwise c lear. There are no pleural effusions. The cardiomediastinal silhouette is within normal limits. Th ere is no pneumothorax suspected. Mild to moderate thoracolumbar scoliosis. There is no significant interval change. IMPRESSION: No acute cardiopulmonary findings. Reviewed, dictated and finalized at location A. D EDITOR
== END 2021-07-30 15:25 | disposition home or self-care (01) ==
LOC: ANHIMG 15:28
PROVIDERS: PCP Internal Medicine; Visit Provider Internal Medicine
DX: R05.9 Cough, unspecified (principal)
CPT/HCPCS: 71046

== ENCOUNTER 2021-08-13 09:07 | Outpatient (CLI) | payer BC, SELFPAY ==
[2021-08-13 10:10] LABS: Alanine Aminotransferase 26 U/L (4-35); Alkaline Phosphatase 66 U/L (38-126); Anion Gap 2 mmol/L (8-16); Aspartate Amino Transferase 37 U/L (14-36); Bilirubin,Total 0.5 mg/dL (0.2-1.3); Blood Urea Nitrogen 21 mg/dL (7-17); Calcium 9.6 mg/dL (8.4-10.2); Carbon Dioxide 30 mmol/L (22-30); Chloride 105 mmol/L (98-107); Cholesterol 162 mg/dL (0-200); Estimated Glomerular Filt Rate > 60; Glucose 95 mg/dL (65-110); HDL Direct 77 mg/dL; Potassium 4.3 mmol/L (3.4-5.0); Sodium 137 mmol/L (137-145); Triglycerides 42 mg/dL (<150)
[2021-08-13 10:25] LABS: LDL Cholesterol Direct 65 mg/dL
[2021-08-13 10:39] LABS: Thyroid Stimulating Hormone 0.983 uIU/mL (0.465-4.680)
== END 2021-08-13 09:08 | disposition home or self-care (01) ==
LOC: ANHLAB 09:10
PROVIDERS: PCP Internal Medicine; Visit Provider Internal Medicine
DX: G47.10 Hypersomnia, unspecified (principal); E03.9 Hypothyroidism, unspecified; E78.5 Hyperlipidemia, unspecified; Z79.899 Other long term (current) drug therapy
CPT/HCPCS: 36415; 80053; 80061; 84443

== ENCOUNTER 2021-08-16 14:50 | Outpatient (CLI) | payer BC, SELFPAY ==
[2021-08-16 15:14] LABS: Add Urine Microscopic? YES; Appearance Urine Cloudy (Clear); Bacteria Urine Trace /hpf; Bilirubin Urine Negative (Negative); Blood Urine Negative (Negative); Color Urine Yellow (Yellow); Glucose Urine UA Negative (Negative); Ketones Urine Negative (Negative); Leukocyte Esterase Ur Negative LEU/UL (Negative); Mucus Urine Rare /lpf; Nitrate Urine Negative (Negative); Protein Urine Negative (Negative); RBC Urine 0-2 /hpf (0-2); Specific Grav Ur 1.008 (1.001-1.035); Squamous Epithelial Cell Urine Rare /hpf (Few); Urobilinogen Urine Negative mg/dL (<2.0); WBC Urine 0-3 /hpf
== END 2021-08-16 14:51 | disposition home or self-care (01) ==
LOC: ANHLAB 14:52
PROVIDERS: PCP Internal Medicine; Visit Provider Internal Medicine
DX: R82.998 Other abnormal findings in urine (principal)
CPT/HCPCS: 81001

== ENCOUNTER 2021-10-23 11:27 | Outpatient (CLI) | payer BC, SELFPAY ==
--- NOTE | ~2021-10-23 | MM_ITS ---
EXAMINATION: MM screening [facility] BI w beka HISTORY: Screening TECHNIQUE: Craniocaudal and mediolateral oblique 3-D tomosynthesis images were obtained and synthetic 2-D images were generated. CAD analysis was submitted and interpreted. COMPARISON: Comparison to multiple prior studies sequentially, with oldest reviewed study dated 02/04. BREAST PARENCHYMAL COMPOSITION: There are scattered areas of fibroglandular density. FINDINGS: There is no evidence of suspicious mass, calcification, or architectural distortion to sugg est malignancy in either breast. There has been no suspicious interval change. IMPRESSION: 1. No mammographic evidence of malignancy. 2. Recommend routine screening mammography in one year. BI-RADS Category 1: Negative Reviewed, dictated and finalized at location A. DRIER
== END 2021-10-23 11:28 | disposition home or self-care (01) ==
PROVIDERS: PCP Internal Medicine; Visit Provider Internal Medicine
DX: Z12.31 Encounter for screening mammogram for malignant neoplasm of breast (principal)
CPT/HCPCS: 77063; 77067

== ENCOUNTER 2022-02-22 16:30 | Outpatient (CLI) | payer BC, SELFPAY ==
[2022-02-22 17:29] LABS: Thyroid Stimulating Hormone 0.353 uIU/mL (0.465-4.680)
== END 2022-02-22 16:31 | disposition home or self-care (01) ==
LOC: ANHLAB 16:33
PROVIDERS: PCP Internal Medicine; Visit Provider Internal Medicine
DX: E03.9 Hypothyroidism, unspecified (principal)
CPT/HCPCS: 36415; 84443

== ENCOUNTER 2022-05-20 16:05 | Outpatient (CLI) | payer MEDICARE, SELFPAY ==
--- NOTE | ~2022-05-20 | MR_ITS ---
EXAMINATION: MR shoulder RT wo con DATE: 05/20/2022 17:33 INDICATION: Right shoulder pain TECHNIQUE: Magnetic resonance imaging (MRI) of the right shoulder was performed without intravenous c ontrast. Sequences included axial PD-weighted FS FSE, coronal oblique PD-weighted FS FSE, coronal obl ique T2-weighted FS FSE, sagittal PD-weighted FS FSE, and sagittal T1-weighted SE. COMPARISON: None. FINDINGS: Coracoacromial arch: The acromion undersurface is curved in morphology (type II). The coracoacromial ligament is normal. M ild acromioclavicular osteoarthritis. Rotator cuff: Moderate tendinopathy of the supraspinatus and anterior infraspinatus tendons with small intrasubstan ce tear measuring 2-3 mm AP along the superior facet footplate have the conjoined portion of the tend on which involves no greater than one third of the tendon thickness. The teres minor tendon is normal . Mild subscapularis tendinopathy without discrete tear. Normal rotator cuff muscle bulk and signal. There is thickened soft tissue likely involving the biceps nolan sling at the rotator cuff interval which replaces the normal T1 hyperintense fat signal, findings which can be seen with adhesive capsul itis which is a clinical diagnosis. Biceps tendon, glenoid labrum and glenohumeral cartilage: Long head of the biceps tendon is normal. Diffuse tearing of the glenoid labrum. Subarticular cystlik e changes along the posterior, inferior and anterior rim of the glenoid consistent with overlying hig h-grade chondromalacia. There appears be chondral surface regularity along the inferomedial aspect of the humeral head. Fluid: Physiologic amount of fluid in the glenohumeral joint and biceps tendon sheath. No loose osteochondr al bodies. Small amount of fluid in the subacromial/subdeltoid bursa consistent with mild bursitis. Bones: Normal marrow signal with no edema, fracture or abnormal marrow replacing process. IMPRESSION: 1. Moderate supraspinatus and anterior infraspinatus tendinopathy with very small mild intrasubstance tear along the superior facet footplate of the conjoined portion of the tendons. 2. Diffuse labral tear and mild glenohumeral osteoarthritis with high-grade chondral malacia subartic ular cystic changes along the anterior, posterior and inferior glenoid. 3. Mild subacromial/subdeltoid bursitis. 4. Thickened soft tissue at the rotator cuff interval which can be seen with adhesive capsulitis whic h is a clinical diagnosis. Reviewed, dictated and finalized at location A. IMPRESSION: 1. Moderate supraspinatus and anterior infraspinatus tendinopathy with very sma ll mild intrasubstance tear along the superior facet footplate of the conjoined portion of the tendons. 2. Diffuse labral tear and mild glenohumeral osteoarthritis with high-grade cho ndral malacia subarticular cystic changes along the anterior, posterior and inf erior glenoid. 3. Mild subacromial/subdeltoid bursitis. 4. Thickened soft tissue at the rotator cuff interval which can be seen with ad hesive capsulitis which is a clinical diagnosis.
--- NOTE | ~2022-05-20 | MR_ITS ---
EXAMINATION: MR cervical spine wo con DATE: 05/20/2022 17:33 INDICATION: Cervical spinal stenosis and worsening neck and right shoulder pain. TECHNIQUE: Magnetic resonance imaging (MRI) of the cervical spine was performed without intravenous c ontrast. Sequences included sagittal T2-weighted FSE, sagittal T2-weighted FS FSE, sagittal T1-weight ed FSE, axial MERGE and axial T2-weighted FSE. COMPARISON: 02/05/2021 FINDINGS: 1 mm anterolisthesis C7 on T1, T2 and T3 and T3 and T4. Vertebral body heights are normal. Bone mar row signal intensity is normal. Moderate disc height loss at C5-C6, T2-T3 and T3-T4 and mild at C4-C5 and T1-T2. Cord signal intensity is normal. Cervical soft tissues are unremarkable. The following di sc levels are specifically discussed: C2-C3: The disc does not extend beyond the endplate margin. There is mild bilateral uncovertebral adrienne nt osteoarthritis. There is mild left and severe right facet joint osteoarthritis. There is bilateral neural foraminal stenosis. There is no central canal stenosis. C3-C4: Disc is mildly bulging. There is mild left and mild to moderate right uncovertebral joint oste oarthritis. There is moderate left and severe right facet joint osteoarthritis. There is mild left an d moderate right neural foraminal stenosis. There is mild central canal stenosis. C4-C5: Disc is minimally bulging. There is moderate left and moderate to severe right uncovertebral j oint osteoarthritis. There is moderate left and severe right facet joint osteoarthritis. There is mil d left and moderate to severe right neural foraminal stenosis. There is mild central canal stenosis. C5-C6: Disc is bulging. There is moderate to severe left and severe right uncovertebral joint osteoar thritis. There is moderate right and severe left facet joint osteoarthritis. There is altered left an d moderate to severe right neural foraminal stenosis. There is mild central canal stenosis. C6-C7: Disc is mildly bulging with superimposed right foraminal zone annular fissure and small disc e xtrusion with disc material extending up to 3 mm cephalad to the level of the inferior endplate of C6 . There is moderate bilateral uncovertebral joint osteoarthritis. There is moderate right and severe left facet joint osteoarthritis. There is mild bilateral neural foraminal stenosis. There is mild rig ht-sided predominant central canal stenosis with mild indentation of the right ventral surface of the cord. C7-T1: Disc does not extend beyond the more posterior T1 endplate margin. There is mild bilateral unc overtebral joint osteoarthritis. There is severe bilateral facet joint osteoarthritis. There is mild bilateral, right greater than left neural foraminal stenosis. There is no central canal stenosis. IMPRESSION: 1. Mild interval progression in moderate cervical spondylosis. Reviewed, dictated and finalized at location A.
== END 2022-05-20 16:06 | disposition home or self-care (01) ==
LOC: ANHIMG 16:07
PROVIDERS: PCP Internal Medicine; Visit Provider Internal Medicine
DX: M48.02 Spinal stenosis, cervical region (principal); G89.29 Other chronic pain; M75.51 Bursitis of right shoulder; M19.011 Primary osteoarthritis, right shoulder; M47.892 Other spondylosis, cervical region
CPT/HCPCS: 72141; 73221

== ENCOUNTER 2022-07-20 12:31 | Outpatient (CLI) | payer OTHER, SELFPAY ==
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
== END 2022-07-20 12:32 | disposition home or self-care (01) ==
PROVIDERS: PCP Internal Medicine; Visit Provider Internal Medicine
DX: M54.2 Cervicalgia (principal)
CPT/HCPCS: 72040

== ENCOUNTER 2022-10-18 12:01 | Outpatient (CLI) | payer MEDICARE, SELFPAY ==
[2022-10-20 11:21] LABS: PCP NEGATIVE ng/mL (<25)
[2022-10-20 17:24] LABS: Cholesterol 169 mg/dL (0-200); HDL Direct 76 mg/dL; Triglycerides 57 mg/dL (<150)
[2022-10-20 17:35] LABS: LDL Cholesterol Direct 64 mg/dL
[2022-10-24 08:58] LABS: Amphetamines Negative; Barbiturates Negative; Benzodiazepines Positive; Cocaine Metabolites Negative; Marijuana Metabolites Negative
== END 2022-10-18 12:02 | disposition home or self-care (01) ==
PROVIDERS: Internal Medicine; PCP Internal Medicine; Visit Provider Internal Medicine
DX: Z13.6 Encounter for screening for cardiovascular disorders (principal); E03.9 Hypothyroidism, unspecified; Z79.899 Other long term (current) drug therapy; Z13.220 Encounter for screening for lipoid disorders
CPT/HCPCS: 36415; 80061; 80307; 84443

== ENCOUNTER 2022-11-11 16:46 | Outpatient (CLI) | payer MEDICARE, SELFPAY ==
[2022-11-11 17:14] LABS: Alanine Aminotransferase 42 U/L (6-35); Albumin Level 4.8 g/dL (3.5-5.1); Alkaline Phosphatase 88 U/L (38-126); Anion Gap 6 mmol/L (8-16); Aspartate Amino Transferase 45 U/L (14-36); Bilirubin,Total 0.5 mg/dL (0.2-1.3); Blood Urea Nitrogen 19 mg/dL (7-17); Calcium 9.5 mg/dL (8.4-10.2); Carbon Dioxide 29 mmol/L (22-30); Chloride 101 mmol/L (98-107); Estimated Glomerular Filt Rate > 60; Glucose 98 mg/dL (65-110); Sodium 136 mmol/L (137-145)
== END 2022-11-11 16:47 | disposition home or self-care (01) ==
LOC: ANHLAB 16:48
PROVIDERS: PCP Internal Medicine; Visit Provider Internal Medicine
DX: Z13.6 Encounter for screening for cardiovascular disorders (principal); Z79.899 Other long term (current) drug therapy
CPT/HCPCS: 36415; 80053

== ENCOUNTER 2023-02-14 11:02 | Outpatient (CLI) | payer MEDICARE, SELFPAY ==
[2023-02-14 11:43] LABS: Basophils Percent Auto 0.3 % (0.2-1.2); Eosinophils Absolute Auto 0.1 K/mm3 (0-0.3); Eosinophils Percent Auto 2.2 % (0-4.4); Hemoglobin 13.7 g/dL (12.0-15.0); Immature Granulocyte Absolute 0.01 K/mm3 (0.00-0.031); Immature Granulocyte Percent A 0.2 % (0-0.5); Lymphocytes Absolute Auto 1.36 K/mm3 (0.9-3.2); Lymphocytes Percent Auto 23.4 % (18.3-44.2); Mean Corpuscular HGB Conc 32.6 g/dl (32-36); Mean Corpuscular Hemoglobin 32.9 pg (26-34); Mean Platelet Volume 11.4 fl (7.4-10.4); Monocytes Absolute Auto 0.3 K/mm3 (0.1-0.6); Monocytes Percent Auto 5.7 % (2.6-8.5); Neutrophils Percent Auto 68.2 % (45.5-73.1); Platelet Count Result 227 k/mm3 (150-375); Red Blood Count 4.16 M/mm3 (4.2-5.4); Red Cell Distribution Width 12.2 % (11.5-14.5); White Blood Count 5.8 K/mm3 (4.5-10.0)
[2023-02-14 11:47] LABS: Alanine Aminotransferase 29 U/L (6-35); Albumin Level 4.5 g/dL (3.5-5.1); Alkaline Phosphatase 89 U/L (38-126); Anion Gap 4 mmol/L (8-16); Aspartate Amino Transferase 38 U/L (14-36); Bilirubin,Total 0.5 mg/dL (0.2-1.3); Blood Urea Nitrogen 23 mg/dL (7-17); Calcium 9.4 mg/dL (8.4-10.2); Carbon Dioxide 32 mmol/L (22-30); Chloride 102 mmol/L (98-107); Estimated Glomerular Filt Rate > 60; Glucose 97 mg/dL (65-110); Potassium 4.3 mmol/L (3.4-5.0); Sodium 138 mmol/L (137-145)
[2023-02-14 12:22] LABS: Free T4 Free Thyroxine 2.04 ng/mL (0.78-2.19); Vitamin D 25 Hydroxy 62.3 ng/mL
[2023-02-14 14:21] LABS: Erythrocyte Sedimentation Rate 17 mm/hr (0-20)
[2023-02-14 17:35] LABS: Rheumatoid Factor < 12.0 IU/ML (<12)
[2023-02-20 11:46] LABS: Anti Nuclear Antibody Titer >=1:1280 (Negative)
[2023-02-22 13:12] LABS: Anti Cyclic Citrullinated Pept <16 Units (<20)
== END 2023-02-14 11:03 | disposition home or self-care (01) ==
PROVIDERS: PCP Family Medicine; Visit Provider Nurse Practitioner Family
DX: F32.9 Major depressive disorder, single episode, unspecified (principal); E55.9 Vitamin D deficiency, unspecified; M19.90 Unspecified osteoarthritis, unspecified site; M25.50 Pain in unspecified joint; Z79.899 Other long term (current) drug therapy; Z86.79 Personal history of other diseases of the circulatory system
CPT/HCPCS: 36415; 80053; 82306; 84439; 85025; 85652; 86038; 86039; 86200; 86430

== ENCOUNTER 2023-04-22 13:31 | Outpatient (CLI) | payer MEDICARE, SELFPAY ==
[2023-04-22 13:57] LABS: Immature Reticulocyte Fraction 9.6 % (3.0-15.9); Reticulocyte Hemoglobin Conten 35.7 pg (28.2-35.7); Reticulocyte Percent 1.61 % (0.7-4.3); Reticulocytes Absolute 0.06 M/mm3 (0.02-0.1)
[2023-04-22 14:08] LABS: Iron 91 ug/dL (37-170)
[2023-04-22 14:18] LABS: Percent Iron Saturation 27 % (20-50)
[2023-04-22 14:20] LABS: Appearance Urine Clear (Clear); Bacteria Urine Rare /hpf; Bilirubin Urine Negative (Negative); Blood Urine Negative (Negative); Color Urine Dark Yellow (Yellow); Glucose Urine UA Negative (Negative); Ketones Urine Trace mg/dL (Negative); Leukocyte Esterase Ur 1+ LEU/UL (NEGATIVE); Need Manual Microscopic Reviewed; Nitrate Urine Negative (Negative); Non Pathogenic Casts 0-2; Protein Urine Negative (Negative); Specific Grav Ur 1.023 (1.001-1.035); Squamous Epithelial Cell Urine None seen /hpf (Few); Urobilinogen Urine 0.2 mg/dL (<2.0); pH Urine 5.5 (5.0-9.0)
[2023-04-22 14:21] LABS: Add Urine Microscopic? YES
[2023-04-22 14:40] LABS: Thyroid Stimulating Hormone 0.527 uIU/mL (0.465-4.680)
[2023-04-22 15:00] LABS: Vitamin B12 > 1000.0 pg/mL (239-931)
[2023-04-29 13:46] LABS: Anti Nuclear Antibody Titer >=1:1280 (Negative)
[2023-04-29 14:43] LABS: Red Blood Cell Folate 663 ng/mL RBC (>280)
== END 2023-04-22 13:32 | disposition home or self-care (01) ==
PROVIDERS: PCP Nurse Practitioner Family; Visit Provider Nurse Practitioner Family
DX: D64.9 Anemia, unspecified (principal); F32.9 Major depressive disorder, single episode, unspecified; M25.50 Pain in unspecified joint; R53.83 Other fatigue; R39.9 Unspecified symptoms and signs involving the genitourinary system
CPT/HCPCS: 36415; 81001; 82607; 82728; 82747; 83540; 83550; 84443; 85046; 86038; 86039; 87077; 87086; 87186

== ENCOUNTER 2023-05-27 12:47 | Outpatient (CLI) | payer MEDICARE, SELFPAY ==
--- NOTE | ~2023-05-27 | MR_ITS ---
MRI of the cervical spine Clinical History: Cervicalgia Technique: Axial T2-weighted and gradient images, and sagittal T1-weighted, T2-weighted, and STIR lee ges were acquired. Findings: There is no fracture or subluxation of the cervical spine. Osseous alignment is unchanged f rom prior exam. No suspicious bone marrow signal abnormality seen. At C2-C3, there is no significant disc bulge or herniation. No spinal canal stenosis, cord compressio n, or definite neural foraminal narrowing. At C3-C4, there is minimal disc bulge. There is right facet arthropathy with right neural foraminal n arrowing. Left neural foramen preserved. No central canal stenosis or cord compression. At C4-C5, there is bilateral facet arthropathy with bilateral neural foraminal narrowing. There is mi nimal disc bulge. No balta central canal stenosis or cord compression. At C5-C6, there is mild disc osteophyte complex. No central canal stenosis or cord compression. There is mild bilateral neural foraminal narrowing with mild bilateral facet arthropathy. At C6-C7, there is minimal disc bulge. No central canal stenosis or cord compression. Probable minima l bilateral neural foraminal narrowing with mild bilateral facet arthropathy. No abnormal signal seen in the spinal cord. Paravertebral soft tissues are unremarkable. Impression: Mild degenerative spondylosis overall, as above. Reviewed, dictated and finalized at [facility]. Impression: Mild degenerative spondylosis overall, as above.
== END 2023-05-27 12:48 | disposition home or self-care (01) ==
LOC: ANHIMG 12:50
PROVIDERS: PCP Nurse Practitioner Family; Visit Provider Nurse Practitioner Family
DX: M25.50 Pain in unspecified joint (principal); M48.02 Spinal stenosis, cervical region; M47.892 Other spondylosis, cervical region
CPT/HCPCS: 72141

== ENCOUNTER 2023-06-15 14:28 | Outpatient (CLI) | payer MEDICARE, SELFPAY ==
[2023-06-15 18:09] LABS: Complement C3 92 mg/dL (88-165)
[2023-06-18 03:46] LABS: Thyroid Peroxidase Antibodies 5 IU/mL (<9)
[2023-06-18 22:06] LABS: CA 15-3 10 U/mL (<32); CA 19-9 28 U/mL (<34)
[2023-06-20 03:48] LABS: SS-A <1.0; SS-B <1.0
[2023-06-21 11:35] LABS: ANCA Screen Negative (Negative); Myeloperoxidase Ab <1.0 AI (<1.0); Proteinase-3 Ab <1.0 AI (<1.0); S cerevisiae Ab (IgG) 24.7 U (<=20.0)
[2023-06-29 15:06] LABS: SM Antibody <1.0; SM/RNP Antibody <1.0
== END 2023-06-15 14:29 | disposition home or self-care (01) ==
PROVIDERS: PCP Nurse Practitioner Family; Visit Provider Internal Medicine
DX: R76.8 Other specified abnormal immunological findings in serum (principal); M47.812 Spondylosis without myelopathy or radiculopathy, cervical region; M47.816 Spondylosis without myelopathy or radiculopathy, lumbar region; Z71.89 Other specified counseling; Z79.899 Other long term (current) drug therapy; R63.4 Abnormal weight loss
CPT/HCPCS: 36415; 86036; 86160; 86225; 86235; 86300; 86301; 86376; 86671

== ENCOUNTER 2023-06-23 13:47 | Outpatient (CLI) | payer MEDICARE, SELFPAY ==
--- NOTE | ~2023-06-23 | CT_ITS ---
EXAMINATION: CT chest abdomen pelvis w con DATE: 06/23/2023 14:17 INDICATION: Weight loss. TECHNIQUE: Computed tomography (CT) of the chest, abdomen, and pelvis was performed with 100 mL Omnip aque 350 intravenous contrast. Automated exposure control and iterative reconstruction technique were employed. The dose-length product was 542.72 mGy-cm. COMPARISON: CT abdomen 02/11/2021 FINDINGS: CHEST CT: The lungs demonstrate mild atelectasis. A calcified left lung nodule and calcified left hilar and med iastinal lymph nodes are consistent with old granulomatous disease. No pleural effusion. The heart si ze is normal. No pericardial effusion. There is moderate thoracic spondylosis. There is mild chronic anterior wedging of multiple vertebral bodies. ABDOMEN/PELVIS CT: The liver, gallbladder, spleen, pancreas, adrenal glands, and kidneys are normal. There is a supraumb ilical ventral hernia containing fat. There are no dilated loops of bowel. There is a moderate volume of stool in the colon. There are no pathologically enlarged lymph nodes. Left ovarian vein is enlarg ed, consistent with pelvic venous insufficiency. There is no free intraperitoneal fluid. There is sev ere lumbar spondylosis. IMPRESSION: 1. Supraumbilical ventral hernia containing fat. 2. Pelvic venous insufficiency. Reviewed, dictated and finalized at location E.
[2023-06-23 14:10] LABS: Estimated Glomerular Filt Rate > 60
== END 2023-06-23 13:48 | disposition home or self-care (01) ==
PROVIDERS: PCP Nurse Practitioner Family; Visit Provider Internal Medicine
DX: R63.4 Abnormal weight loss (principal); K43.9 Ventral hernia without obstruction or gangrene
CPT/HCPCS: 71260; 74177; Q9967

== ENCOUNTER 2023-07-18 11:02 | Outpatient (CLI) | payer MEDICARE, SELFPAY ==
[2023-07-22 19:54] LABS: Immunoglobulin A 279 mg/dL (70-320); TTG IGA AB <1.0 U/mL (<15.0)
== END 2023-07-18 11:03 | disposition home or self-care (01) ==
LOC: ANHWCLAB 11:07
PROVIDERS: PCP Nurse Practitioner Family; Visit Provider Internal Medicine Endocrinology, Diabetes & Metabolism
DX: T78.1XXA Other adverse food reactions, not elsewhere classified, initial encounter (principal); F32.9 Major depressive disorder, single episode, unspecified; E03.9 Hypothyroidism, unspecified
CPT/HCPCS: 36415; 82784; 86364

== ENCOUNTER 2023-08-17 16:15 | Outpatient (CLI) | payer MEDICARE, SELFPAY ==
[2023-08-17 17:45] LABS: Appearance Urine Clear (Clear); Bilirubin Urine Negative (Negative); Blood Urine Negative (Negative); Color Urine Yellow (Yellow); Glucose Urine UA Negative (Negative); Ketones Urine Negative (Negative); Leukocyte Esterase Ur Negative LEU/UL (NEGATIVE); Nitrate Urine Negative (Negative); Protein Urine Negative (Negative); Specific Grav Ur 1.009 (1.001-1.035); Urobilinogen Urine 0.2 mg/dL (<2.0); pH Urine 5.5 (5.0-9.0)
[2023-08-17 17:51] LABS: Add Urine Microscopic? NO
[2023-08-17 18:06] LABS: Thyroid Stimulating Hormone 0.293 uIU/mL (0.465-4.680)
[2023-08-17 18:48] LABS: Free T4 Free Thyroxine 1.68 ng/mL (0.78-2.19)
== END 2023-08-17 16:16 | disposition home or self-care (01) ==
LOC: ANHLAB 16:18
PROVIDERS: PCP Nurse Practitioner Family; Referring Provider Internal Medicine Endocrinology, Diabetes & Metabolism; Visit Provider Nurse Practitioner Family
DX: R39.9 Unspecified symptoms and signs involving the genitourinary system (principal); Z79.899 Other long term (current) drug therapy; E03.9 Hypothyroidism, unspecified; F32.9 Major depressive disorder, single episode, unspecified
CPT/HCPCS: 36415; 81003; 84439; 84443; 87086

== ENCOUNTER 2023-09-08 14:01 | Outpatient (CLI) | payer MEDICARE, SELFPAY ==
--- NOTE | ~2023-09-08 | MM_ITS ---
EXAMINATION: MM screening [facility] BI w beka HISTORY: Screening TECHNIQUE: Craniocaudal and mediolateral oblique 3-D tomosynthesis images were obtained and synthetic 2-D images were generated. CAD analysis was submitted and interpreted. COMPARISON: Comparison to multiple prior studies sequentially, with oldest reviewed study dated 02/04. BREAST PARENCHYMAL COMPOSITION: The breasts are heterogeneously dense, which may obscure small masses FINDINGS: There is no evidence of suspicious mass, calcification, or architectural distortion to sugg est malignancy in either breast. There has been no suspicious interval change. IMPRESSION: 1. No mammographic evidence of malignancy. 2. Recommend routine screening mammography in one year. BI-RADS Category 1: Negative Reviewed, dictated and finalized at location A. MANAGER
== END 2023-09-08 14:02 | disposition home or self-care (01) ==
LOC: ANHIMG 14:05
PROVIDERS: PCP Nurse Practitioner Family; Visit Provider Obstetrics & Gynecology
DX: Z12.31 Encounter for screening mammogram for malignant neoplasm of breast (principal)
CPT/HCPCS: 77063; 77067

== ENCOUNTER 2023-10-09 14:54 | Outpatient (CLI) | payer MEDICARE, SELFPAY ==
--- NOTE | ~2023-10-09 | XR_ITS ---
EXAMINATION: XR chest 2V 10/09/2023 15:18 INDICATION: Cough PROCEDURE: 2 view chest COMPARISON: No prior studies for comparison. FINDINGS: The lungs are clear. The cardiomediastinal silhouette is within normal limits. There are no pleural effusions. There is no pneumothorax suspected. IMPRESSION: 1: NO ACUTE CARDIOPULMONARY DISEASE. Reviewed, dictated and finalized at location B. HOUSE OPERATOR
== END 2023-10-09 14:55 | disposition home or self-care (01) ==
PROVIDERS: PCP Nurse Practitioner Family; Visit Provider Nurse Practitioner Family
DX: R05.9 Cough, unspecified (principal)
CPT/HCPCS: 71046

== ENCOUNTER 2024-01-12 08:57 | Outpatient (CLI) | payer MEDICARE, SELFPAY ==
[2024-01-12 09:29] LABS: Basophils Percent Auto 1.1 % (0.2-1.2); Eosinophils Absolute Auto 0.3 K/mm3 (0-0.3); Eosinophils Percent Auto 7.7 % (0-4.4); Hematocrit 37.9 % (37.0-47.0); Hemoglobin 11.6 g/dL (12.0-15.0); Immature Granulocyte Absolute 0.01 K/mm3 (0.00-0.031); Immature Granulocyte Percent A 0.3 % (0-0.5); Lymphocytes Absolute Auto 1.02 K/mm3 (0.9-3.2); Lymphocytes Percent Auto 27.2 % (18.3-44.2); Mean Corpuscular HGB Conc 30.6 g/dl (32-36); Mean Corpuscular Hemoglobin 32.2 pg (26-34); Mean Corpuscular Volume 105.3 fl (80-100); Mean Platelet Volume 10.6 fl (7.4-10.4); Monocytes Absolute Auto 0.3 K/mm3 (0.1-0.6); Monocytes Percent Auto 7.7 % (2.6-8.5); Neutrophils Absolute Auto 2.1 K/mm3 (1.3-6.7); Platelet Count Result 294 k/mm3 (150-375); Red Cell Distribution Width 13.5 % (11.5-14.5); White Blood Count 3.8 K/mm3 (4.5-10.0)
[2024-01-12 09:43] LABS: Alanine Aminotransferase 36 U/L (6-35); Albumin Level 4.2 g/dL (3.5-5.1); Alkaline Phosphatase 70 U/L (38-126); Anion Gap 2 mmol/L (4-12); Aspartate Amino Transferase 39 U/L (14-36); Bilirubin,Total 0.5 mg/dL (0.2-1.3); Blood Urea Nitrogen 23 mg/dL (7-17); Calcium 9.4 mg/dL (8.4-10.2); Carbon Dioxide 28 mmol/L (22-30); Chloride 106 mmol/L (98-107); Cholesterol 176 mg/dL (0-200); Estimated Glomerular Filt Rate > 60; Glucose 83 mg/dL (65-110); HDL Direct 87 mg/dL; Sodium 136 mmol/L (137-145); Triglycerides 52 mg/dL (<150)
[2024-01-12 09:53] LABS: LDL Cholesterol Direct 84 mg/dL
[2024-01-12 10:36] LABS: Iron 61 ug/dL (37-170)
[2024-01-12 10:48] LABS: Free T4 Free Thyroxine 1.51 ng/mL (0.78-2.19)
[2024-01-12 10:49] LABS: Percent Iron Saturation 16 % (20-50); Vitamin D 25 Hydroxy 61.4 ng/mL
[2024-01-14 15:08] LABS: Amphetamines NEGATIVE ng/mL (<500); Barbiturates NEGATIVE ng/mL (<300); Benzodiazepines NEGATIVE ng/mL (<100); Cocaine Metabolite NEGATIVE ng/mL (<150); Marijuana Metabolite NEGATIVE ng/mL (<20); Methadone Metabolite NEGATIVE ng/mL (<100); Opiates NEGATIVE ng/mL (<100); Oxidant NEGATIVE mcg/mL (<200); pH 7.4 (4.5-9.0)
== END 2024-01-12 08:58 | disposition home or self-care (01) ==
LOC: ANHLAB 09:04
PROVIDERS: PCP Nurse Practitioner Family; Referring Provider Nurse Practitioner Family; Visit Provider Internal Medicine Endocrinology, Diabetes & Metabolism
DX: F32.9 Major depressive disorder, single episode, unspecified (principal); E03.9 Hypothyroidism, unspecified; E55.9 Vitamin D deficiency, unspecified; E56.9 Vitamin deficiency, unspecified; F41.9 Anxiety disorder, unspecified; G89.4 Chronic pain syndrome; M47.812 Spondylosis without myelopathy or radiculopathy, cervical region; M25.50 Pain in unspecified joint
CPT/HCPCS: 36415; 80053; 80061; 80307; 82306; 83540; 83550; 84439; 84443; 85025

== ENCOUNTER 2024-02-28 12:22 | Outpatient (CLI) | payer MEDICARE, SELFPAY ==
[2024-03-04 12:24] LABS: Almond (F20) IgE <0.10 kU/L; Cashew Nut (F202) IgE <0.10 kU/L; Cashew Nut (F202) IgE Class 0; Codfish (F3) IgE <0.10 kU/L; Codfish (F3) IgE Class 0; Cow's Milk (F2) IgE <0.10 kU/L; Cow's Milk (F2) IgE Class 0; Egg White (F1) IgE <0.10 kU/L; Egg White (F1) IgE Class 0; Hazelnut (F17) IgE <0.10 kU/L; Hazelnut (F17) IgE Class 0; Peanut (F13) IgE <0.10 kU/L; Peanut (F13) IgE Class 0; Salmon (F41) IgE <0.10 kU/L; Salmon (F41) IgE Class 0; Scallop (F338) IgE <0.10 kU/L; Scallop (F338) IgE Class 0; Sesame Seed <0.10 kU/L; Shrimp (F24) IgE <0.10 kU/L; Soybean (F14) IgE <0.10 kU/L; Soybean (F14) IgE Class 0; Tuna (F40) <0.10 kU/L; Tuna (F40) Class 0; Walnut (F256) IgE <0.10 kU/L; Walnut (F256) IgE Class 0; Wheat (F4) IgE <0.10 kU/L; Wheat (F4) IgE Class 0
== END 2024-02-28 12:23 | disposition home or self-care (01) ==
LOC: ANHLAB 12:24
PROVIDERS: PCP Nurse Practitioner Family; Visit Provider Nurse Practitioner Family
DX: R14.0 Abdominal distension (gaseous) (principal); Z91.02 Food additives allergy status; U09.9 Post COVID-19 condition, unspecified; Z01.84 Encounter for antibody response examination
CPT/HCPCS: 36415; 86003; 86769

== ENCOUNTER 2024-03-13 17:39 | Outpatient (CLI) | payer MEDICARE, SELFPAY ==
[2024-03-13 19:08] LABS: Free T4 Free Thyroxine 1.31 ng/mL (0.78-2.19)
== END 2024-03-13 17:40 | disposition home or self-care (01) ==
LOC: ANHLAB 17:42
PROVIDERS: PCP Nurse Practitioner Family; Visit Provider Internal Medicine Endocrinology, Diabetes & Metabolism
DX: F32.9 Major depressive disorder, single episode, unspecified (principal); E03.9 Hypothyroidism, unspecified
CPT/HCPCS: 36415; 84439; 84443

== ENCOUNTER 2024-04-19 09:48 | Outpatient (CLI) | payer MEDICARE, SELFPAY ==
--- NOTE | 2024-04-19 09:53 | ECHO_ITS ---
Patient Info Name: Sunni Haro Age: 68 years : 1955 Gender: Female Ht: 64 in Wt: 138 lbs BSA: 1.69 m2 HR: 71 bpm BP: 124 / 70 mmHg Technical Quality: Fair Exam Date: 04/19/2024 10:10 AM Exam Location: Echo Lab Patient Status: Outpatient Admit Date: 04/19/2024 Staff Ordering Physician: Eula Jennings APRN Metal Tube Cutter: Tamir Morrow RDCS Attending Provider: Eula Jennings APRN Referring Physician: Michaela SERNA; Exam Type: CA echo doppler color flow Study Info Indications R68.89 - Other general symptoms and signs Complete two-dimensional, color flow and Doppler transthoracic echocardiogram is performed. Summary 1. Complete two-dimensional, color flow and Doppler transthoracic echocardiogram is performed. 2. Left ventricular chamber dimension is normal. 3. Left ventricular systolic function is normal, estimated at 60-65%. 4. The left ventricular diastolic function is grade I diastolic dysfunction. 5. E/e' 9 is minimally elevated. 6. There is mild mitral valve regurgitation. 7. No pulmonary hypertension, estimated pulmonary arterial systolic pressure is 23 mmHg. Left Ventricle E/e' 9 is minimally elevated. Left ventricular chamber dimension is normal. Left ventricular systolic function is normal, estimated at 60-65%. The left ventricular diastolic function is grade I diastolic dysfunction. Right Ventricle Right ventricular systolic function is normal and with normal TAPSE 1.9 cm. Right ventricular chamber dimension is normal. Left Atria Left atrial chamber dimension is normal. Right Atria Right atrial chamber dimension is normal. Aortic Valve The aortic valve is trileaflet. There is no aortic valve stenosis. There is no aortic valve regurgitation. Pulmonic Valve There is no pulmonic regurgitation. Mitral Valve There is no mitral valve stenosis. There is mild mitral valve regurgitation. Tricuspid Valve There is no tricuspid valve regurgitation. No pulmonary hypertension, estimated pulmonary arterial systolic pressure is 23 mmHg. Pericardium/Pleural There is no pericardial effusion. Inferior Vena Cava Normal inferior vena cava with >50% collapse upon inspiration consistent with normal right atrial pressure, 5 mmHg. Aorta The aortic root size at the sinus of Valsalva is normal. Left Ventricular Outflow Tract Name Value Normal LVOT 2D LVOT Diameter 1.9 cm LVOT Doppler LVOT Peak Gradient 9 mmHg LVOT Mean Gradient 4 mmHg LVOT VTI 27 cm LVOT VTI/AV VTI Ratio 1.0 LVOT Stroke Volume 77 ml LVOT CO 5.3 l/min LVOT CI 3.1 l/min/m2 Pulmonic Valve Name Value Normal PV Doppler PV Peak Gradient 4 mmHg Mitral Valve Name
== END 2024-04-19 09:49 | disposition home or self-care (01) ==
LOC: ANHCARD 09:49
PROVIDERS: PCP Nurse Practitioner Family; Visit Provider Nurse Practitioner Family
DX: R68.89 Other general symptoms and signs (principal); U09.9 Post COVID-19 condition, unspecified; I34.0 Nonrheumatic mitral (valve) insufficiency
CPT/HCPCS: 93306

== ENCOUNTER 2024-05-09 15:30 | Outpatient (CLI) | payer MEDICARE, SELFPAY ==
[2024-05-09 16:22] LABS: Basophils Percent Auto 0.4 % (0.2-1.2); Eosinophils Absolute Auto 0.1 K/mm3 (0-0.3); Eosinophils Percent Auto 2.6 % (0-4.4); Hemoglobin 12.7 g/dL (12.0-15.0); Immature Granulocyte Absolute 0.01 K/mm3 (0.00-0.031); Immature Granulocyte Percent A 0.2 % (0-0.5); Lymphocytes Absolute Auto 1.42 K/mm3 (0.9-3.2); Lymphocytes Percent Auto 31.3 % (18.3-44.2); Mean Corpuscular HGB Conc 32.6 g/dl (32-36); Mean Corpuscular Hemoglobin 33.1 pg (26-34); Mean Corpuscular Volume 101.6 fl (80-100); Mean Platelet Volume 11.2 fl (7.4-10.4); Monocytes Absolute Auto 0.4 K/mm3 (0.1-0.6); Monocytes Percent Auto 8.8 % (2.6-8.5); Neutrophils Absolute Auto 2.6 K/mm3 (1.3-6.7); Neutrophils Percent Auto 56.7 % (45.5-73.1); Platelet Count Result 223 k/mm3 (150-375); Red Blood Count 3.84 M/mm3 (4.2-5.4); Red Cell Distribution Width 13.1 % (11.5-14.5); White Blood Count 4.5 K/mm3 (4.5-10.0)
[2024-05-09 17:16] LABS: Iron 115 ug/dL (37-170)
[2024-05-09 17:26] LABS: Percent Iron Saturation 34 % (20-50)
== END 2024-05-09 15:31 | disposition home or self-care (01) ==
LOC: ANHLAB 15:33
PROVIDERS: PCP Nurse Practitioner Family; Visit Provider Nurse Practitioner Family
DX: F32.9 Major depressive disorder, single episode, unspecified (principal); D50.9 Iron deficiency anemia, unspecified
CPT/HCPCS: 36415; 83540; 83550; 85025

== ENCOUNTER 2024-07-01 12:44 | Outpatient (CLI) | payer MEDICARE, SELFPAY ==
--- NOTE | ~2024-07-01 | XR_ITS ---
AP view of the pelvis and AP and lateral views of the bilateral hips Clinical history: Pain Findings: No acute fracture or dislocation is seen. Osseous alignment is anatomic. Bilateral hip and SI joint spaces are preserved. Soft tissues are unremarkable. There is degenerative spondylosis of th e lower lumbar spine. Impression: No abnormality of the hips. Degenerative spondylosis of the lower lumbar spine. Reviewed, dictated and finalized at location M. Impression: No abnormality of the hips. Degenerative spondylosis of the lower lumbar spine.
--- NOTE | ~2024-07-01 | XR_ITS ---
3 VIEWS LUMBAR SPINE Ordering provider: Eula Jennings APRN History: . LEFT SIDE LOW BACK AND HIP PAIN FOR YEARS, NO INJ . Comparison: None. FINDINGS: VERTEBRAL BODIES: Minimal anterolisthesis at the level of L4-L5 and L5-S1. Spondylolysis at the level of L5-S1. Dextroscoliosis. No visible fracture or subluxation. Degenerative changes of the spine. DISK SPACES: Narrowing of the disc L1-L2, L4-L5 and L5-S1. Multilevel facet joint disease in the lowe r lumbar area. SOFT TISSUES: Normal. IMPRESSION: No acute osseous abnormality lumbar spine. Dextroscoliosis Minimal anterolisthesis at the level of L4-L5 and L5-S1. Multilevel degenerative disc disease and facet joint disease. Reviewed, dictated and finalized at location A.
== END 2024-07-01 12:45 | disposition home or self-care (01) ==
PROVIDERS: PCP Nurse Practitioner Family; Visit Provider Nurse Practitioner Family
DX: M25.551 Pain in right hip (principal); M25.552 Pain in left hip; M19.90 Unspecified osteoarthritis, unspecified site; M47.26 Other spondylosis with radiculopathy, lumbar region; M51.369 Other intervertebral disc degeneration, lumbar region without mention of lumbar back pain or lower extremity pain
CPT/HCPCS: 72100; 73521

== ENCOUNTER 2025-01-25 10:28 | Outpatient (CLI) | payer MEDICARE, SELFPAY ==
--- OUTSIDE RECORDS SUMMARY | 2025-01-25 10:31 | XMS_ITS | Clinical Summary ---
Author Organization [facility] Address [address] [place] [address] Care Team Providers Care Test Driller Name Role Phone Unavailable Primary Care Provider Unavailabl e Social History Tobacco Use Types Packs/Day Years Used Date Smoking Tobacco: Never Assessed Comments Unknown Sex and Gender Information Value Date Recorded Sex Assigned at Not on file Legal Sex Female 8:20 PM CDT Gender Identity Not on file Sexual Orientation Not on file Plan of Treatment Health Maintenance Due Date Last Done Comments Colorectal Cancer Screening Colonoscopy (10 Years) 1957 Hepatitis C 1975 DTaP, Tdap and Td Vaccines ( 1 - Tdap) 1976 Mammogram Screening 1997 Pneumococcal Vaccine: 50+ Ye ars (1 of 1 - PCV) 2007 Zoster Vaccines (1 of 2) 2007 Dexa Scan (General) 2022 COVID-19 Vaccine ( - 2023-2 5 season) 2024 RSV Immunization or 60+ Years (1 - 1-dose 75+ series) 2032 Meningococcal B Vaccine Aged Out No l onger eligible based on patient's age to complete this topic Meningococcal Vaccine Aged Out No iam justice eligible based on patient's age to complete this topic RSV Immunizations Under 20 Months Aged Out No longer eligible based on patient's age to complete this topic
--- OUTSIDE RECORDS SUMMARY | 2025-01-25 10:31 | XMS_ITS | Referral Summary ---
Author Organization [facility] [address] Address [address] [place] [address] Care Team Providers Care Facility Designer Name Role Phone Tino Paula MD Primary Care Provider [phone] Allergies Active Allergy Reactions Criticality Noted Date Comments Hydrocodone Medications levothyroxine (SYNTHROID) 75 mcg tablet Take 1 tablet (75 mcg total) by mouth seismographer before breakfast Active amitriptyline (ELAVIL) 25 mg tablet Take 2 tablets (50 mg total) by mouth nightly 0 Active ALPRAZolam (XANAX) 0.25 mg tablet 0 Active traMADoL (ULTRAM) 50 mg tablet Take 0.5 tablets (25 mg total) by mouth 2 (two) times a day as needed Active aspirin 81 mg enteric coated tablet Take 1 tablet (81 mg total) by mouth daily Active ospemifene 60 mg tablet Take 60 mg by mouth daily Active estradiol-noret hindrone (ACTIVELLA) 0.5-0.1 mg per tablet Take 1 tablet by mouth daily 1 Active methocarbamoL (ROBAXIN) 750 mg tablet Take 750 mg by mouth 3 (three) times a day as needed 1 Active clotrimazole-be tamethasone (LOTRISONE) cream Apply topically as directed 1 Active baclofen (LIORESAL) 10 mg tablet Take 1 tablet (10 mg total) by mouth 2 (two) times a day as needed 2 Active estradioL (ESTRACE) 1 mg tablet Take 1 tablet (1 mg total) by mouth daily 2 Active levothyroxine (SYNTHROID) 200 mcg tablet Take 1 tablet (200 mcg total) by mouth daily 3 Active Active Problems Problem Noted Date Diagnosed Date Paroxysmal atrial fibrillation 07/14/2020 Social History Tobacco Use Types Packs/Day Years Used Date Smoking Tobacco: Never Smokeless Tobacco: Never Tobacco Cessation:Counseling Given: Not Answered Alcohol Use Standard Drinks/Week Comments Never 0 (1 standard drink = 0.6 oz pur e alcohol) AUDIT-C Answer Date Recorded Q1: How often do you have a drink containing alc ohol? 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 Gender Identity Not on file Sexual Orientation Not on file Last Filed Vital Signs Vital Sign Reading Time Taken Comments Blood Pressure 116/78 03/16/2023 11:21 AM CDT Pulse 69 03/16/2023 11:21 AM CDT Temperature - - Respiratory Rate 18 07/14/2020 2:57 PM CDT Oxygen Saturation 97% 03/16/2023 11:21 AM CDT Inhaled Oxygen Concentration - - Weight 66.7 kg (147 lb) 03/16/2023 11:21 AM CDT Height 162.6 cm (5' 4 ) 03/16/2023 11:21 AM CDT Body Mass Index 25.23 03/16/2023 11:21 AM CDT Plan of Treatment Not on [place] [address] AARP Care Teams Facility Designer Relationship Specialty Start Date End Date Tino Paula MD PCP - General Family Practice 03/16/23
--- OUTSIDE RECORDS SUMMARY | 2025-01-25 10:31 | XMS_ITS | Clinical Summary ---
Author Organization [facility] [address] Address [address] [place] [address] Care Team Providers Care Senior Qa Analyst Name Role Phone Tino Paula MD Primary Care Provider [phone] Allergies Active Allergy Reactions Criticality Noted Date Comments Hydrocodone Medications levothyroxine (SYNTHROID) 75 mcg tablet Take 1 tablet (75 mcg total) by mouth legal officer before breakfast Active amitriptyline (ELAVIL) 25 mg [...] Date Diagnosed Date Paroxysmal atrial fibrillation 07/14/2020 Surgical History Surgery Date Site/Laterality Comments TUBAL LIGATION Medical History Medical History Date Comments Covid-19 A-fib (HCC) Family History Medical History Relation Name Comments Alcohol abuse Father Heart disease Father Alcohol abuse Mother Relation Name Status Comments Father Mother Social History Tobacco Use Types Packs/Day Years [...] on file 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 Gender Identity Not on file Sexual Orientation Not on file Obstetrics History Last Filed Vital Signs Vital Sign Reading [...] 03/16/2023 11:21 AM CDT Plan of Treatment Health Maintenance Due Date Last Done Comments Breast Cancer Screening-Mammogram 1955 Colon Cancer Screening-Colonoscopy 1957 Depression Screening 1957 Fall Risk Assessment 1957 Hepatitis C Screening 1957 Osteoporosis Screening-Bone Density Scan 1957 DTaP/Tdap/Td Vaccine (1 - Tdap) 1968 Hepatitis B Screening 1975 Pneumococcal vaccine 65+ (1 of 1 - PCV) 2007 Zoster Vaccine (1 of 2) 2007 Well Visit 65+ 2022 Influenza Vaccine (#1) 2024 Insurance MEDICARE [facility] Care Teams Senior Qa Analyst Relationship Specialty Start Date End Date Tino Paula MD PCP - General Family Practice 03/16/23
--- OUTSIDE RECORDS SUMMARY | 2025-01-25 10:31 | XMS_ITS | Clinical Summary ---
Author Organization [facility] Address [address] [place] [address] Care Team Providers Care English And Reading Instructor Name Role Phone Jules Juarez DO Primary Care Provider [phone] Source Comments [facility],non-owned Affiliates and Associated Physician Practices is amultiple site organization consisting of ambulatory clinics and hospital sitesin [place]. This disclosure is being madepursuant to the Care Everywhere program and may not contain all information available regarding this patient. 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 Alwaysverify current medications with the patient. ALPRAZolam (XANAX) 0.25 MG tablet Take 0.5 tablets by mouth nightly as needed 05/20/2021 Active amitriptyline (ELAVIL) 25 MG tablet Take 1-2 tablets by mouth at bedtime 05/11/2021 Active aspirin EC (ECOTRIN) 81 MG tablet Take 81 mg by mouth once daily Active clotrimazole-be tamethasone (LOTRISONE) 1-0.05 % cream Apply to affected area as directed 05/14/2021 Active estradiol-noret hindrone (ACTIVELLA) 0.5-0.1 MG tablet Take 1 tablet by mouth once daily 05/14/2021 Active PREMARIN 0.625 MG/GM vaginal cream Insert 0.5 g into the vagina Three times a week 08/31/2020 Active ibandronate (BONIVA) 150 MG tablet Take 1 tablet by mouth every 30 days 09/21/2020 Active levothyroxine (SYNTHROID) 200 MCG tablet Take 200 mcg by mouth once daily 04/09/2021 Active methocarbamol (ROBAXIN) 750 MG tablet Take 750 mg by mouth 3 times daily as needed FOR MUSCLE SPASM 05/20/2021 Active metoprolol succinate XL 24hr (TOPROL XL) 25 MG tablet Take 0.5 tablets by mouth once daily 05/31/2021 Active traMADol (ULTRAM) 50 MG tablet Take by mouth as directed 06/07/2021 Active Active Problems No known active problems Social History Tobacco Use Types Packs/Day Years Used Date Smoking Tobacco: Never Smokeless Tobacco: Never Alcohol Use Standard Drinks/Week Comments Not Currently 0 (1 standard drink = 0.6 oz pur e alcohol) PHQ-2 Answer Date Recorded PHQ2 TOTAL SCORE 0 06/14/2021 Comments Unknown Sex and Gender Information Value Date Recorded Sex Assigned at Not on file Legal Sex Female 8:00 AM CDT Gender Identity Not on file Sexual Orientation Not on file Last Filed Vital Signs Vital Sign Reading Time Taken Comments Blood Pressure 114/70 06/14/2021 12:26 PM CDT Pulse 64 06/14/2021 12:26 PM CDT Temperature 36.9 C (98.4 F) 06/14/2021 12:26 PM CDT Respiratory Rate - - Oxygen Saturation - - Inhaled Oxygen Concentration - - Weight 68.9 kg (152 lb) 06/14/2021 12:26 PM CDT Height 162.6 cm (5' 4 ) 06/14/2021 12:26 PM CDT Body Mass Index 26.09 06/14/2021 12:26 PM CDT Plan of Treatment Health Maintenance Due Date Last Done Comments BONE DENSITY TESTING 1955 COLOGUARD (AGES 45-75) - COL ON CA SCREENING 1957 COLON MONITORING 1957 COLONOSCOPY - COLON CA SCREENING 1957 CT COLONOGRAPHY - COLON CA SCREENING 1957 Colorectal Cancer Screening 1957 FIT - COLON CA SCREENING 1957 FLEX SIG - COLON CA SCREENING 1957 LIPID TESTING 1957 MAMMOGRAM 1957 HEPATITIS C SCREENING 05/03/1975 DTAP/TDAP/TD VACCINES (1 - Tdap) 1976 PNEUMOCOCCAL VACCINE 50+ (1 of 1 - PCV) 2007 ZOSTER VACCINE (1 of 2) 2007 COVID-19 VACCINE (1 - 2023-2 5 season) 2024 SCREENING FOR DIABETES 06/14/2024 06/14/2021 DEPRESSION SCREENING 09/18/2024 INFLUENZA VACCINE (Season Ended) 2025 Respiratory Syncytial Virus (RSV) Vaccine Pt: or over 60 yrs (1 - 1-dose 75+ series) 2032 HEPATITIS B VACCINE Aged Out No longe r eligible based on patient's age to complete this topic HIB VACCINE Aged Out No longer eligi ble based on patient's age to complete this topic HPV VACCINE Aged Out No longer eligi ble based on patient's age to complete this topic MENINGOCOCCAL (Group B) VACC INE SHARED DECISION-MAKING Aged Out No longer eligibl e based on patient's age to complete this topic MENINGOCOCCAL GROUPS A/C/Y/W VACCINE Aged Out No longer eligible b ased on patient's age to complete this topic Procedures Procedure Name Priority Date/Time Associated Diagnosis Comments COMPREHENSIVE METABOLIC PANEL Routine 06/14/2021 2:02 PM CDT Arthralgia, unspecified joint Raynaud's disease without gangrene LIANA positive from Last 3 Months or Most Recently Relevant to Health Maintenance Results * (ABNORMAL) COMPREHENSIVE METABOLIC PANEL (06/14/2021 2:02 PM CDT) BUN 21 7 - 26 mg/dL 06/14/2021 3:39 PM CDT [facility] Creatinine 0.78 0.56 - 0.96 mg/dL 06/14/2021 3:39 PM CDT [facility] Sodium 142 136 - 145 mmol/L 06/14/2021 3:39 PM CDT [facility] Potassium 4.0 3.5 - 4.5 mmol/L 06/14/2021 3:39 PM CDT [facility] Chloride 104 98 - 107 mmol/L 06/14/2021 3:39 PM [facility] CO2 28 22 - 29 mmol/L 06/14/2021 3:39 PM [facility] Glucose 93 70 - 115 mg/dL 06/14/2021 3:39 PM [facility] Calcium 10.0 8.4 - 10.2 mg/dL 06/14/2021 3:39 PM [facility] Protein Total 7.5 6.0 - 8.3 g/dL 06/14/2021 3:39 PM [facility] Albumin 4.1 3.4 - 5.0 g/dL 06/14/2021 3:39 PM [facility] Bilirubin Total 0.5 0.2 - 1.2 mg/dL 06/14/2021 3:39 PM [facility] Alkaline Phosphatase 68 40 - 150 U/L 06/14/2021 3:39 PM [facility] ALT 26 5 - 55 U/L 06/14/2021 3:39 PM [facility] AST 33 5 - 34 U/L 06/14/2021 3:39 PM [facility] Anion Gap 14 8 - 18 06/14/2021 3:39 PM [facility] BUN/Creatinine Ratio 27(H) 7 - 23 06/14/2021 3:39 PM [facility] Osmolality Calculated 297 270 - 300 mOsm/kg 06/14/2021 3:39 PM [facility] Albumin/Globulin Ratio 1.2 1.1 - 2.3 06/14/2021 3:39 PM [facility] eGFR by CKD-EPI 80(L) >=90 mL/min/1.7 3 m2 06/14/2021 3:39 PM [facility] Blood BLOOD SPECIMEN / Unknown Lab Venipuncture / Unknown 06/14/2021 2:02 PM CDT 06/14/2021 3:10 PM [facility] us Abbey Knapp MD LAB - CHEMISTRY ORDERAB LES Final Result [facility] [address] [place] [address], [facility] [phone] from Last 3 Months or Most Recently Relevant to Health Maintenance Insurance [employer] Care Teams English And Reading Instructor Relationship Specialty Start Date End Date Jules Juarez DO [address] [place] [address] PCP - General Internal Medicine 06/09/21
[2025-01-25 11:37] LABS: Basophils Percent Auto 0.5 % (0.2-1.2); Eosinophils Absolute Auto 0.2 K/mm3 (0-0.3); Eosinophils Percent Auto 3.4 % (0-4.4); Hematocrit 40.5 % (37.0-47.0); Hemoglobin 12.8 g/dL (12.0-15.0); Immature Granulocyte Absolute 0.01 K/mm3 (0.00-0.031); Immature Granulocyte Percent A 0.2 % (0-0.5); Lymphocytes Percent Auto 22.8 % (18.3-44.2); Mean Corpuscular HGB Conc 31.6 g/dl (32-36); Mean Corpuscular Hemoglobin 32.4 pg (26-34); Mean Corpuscular Volume 102.5 fl (80-100); Mean Platelet Volume 11.3 fl (7.4-10.4); Monocytes Absolute Auto 0.4 K/mm3 (0.1-0.6); Monocytes Percent Auto 6.9 % (2.6-8.5); Neutrophils Absolute Auto 4.1 K/mm3 (1.3-6.7); Neutrophils Percent Auto 66.2 % (45.5-73.1); Platelet Count Result 247 k/mm3 (150-375); Red Blood Count 3.95 M/mm3 (4.2-5.4); Red Cell Distribution Width 12.3 % (11.5-14.5); White Blood Count 6.1 K/mm3 (4.5-10.0)
[2025-01-25 11:53] LABS: Alanine Aminotransferase 28 U/L (6-35); Albumin Level 4.3 g/dL (3.5-5.1); Alkaline Phosphatase 90 U/L (38-126); Anion Gap 7 mmol/L (4-12); Aspartate Amino Transferase 45 U/L (14-36); Bilirubin,Total 0.6 mg/dL (0.2-1.3); Blood Urea Nitrogen 22 mg/dL (7-17); Calcium 9.6 mg/dL (8.4-10.2); Carbon Dioxide 27 mmol/L (22-30); Chloride 104 mmol/L (98-107); Cholesterol 169 mg/dL (0-200); Estimated Glomerular Filt Rate > 60; Glucose 90 mg/dL (65-110); HDL Direct 107 mg/dL; Sodium 138 mmol/L (137-145); Triglycerides 52 mg/dL (<150)
[2025-01-25 12:00] LABS: Hemoglobin A1C 4.9 % (<5.7)
[2025-01-25 12:06] LABS: LDL Cholesterol Direct 50 mg/dL
[2025-01-25 12:22] LABS: Iron 92 ug/dL (37-170)
[2025-01-25 12:23] LABS: Thyroid Stimulating Hormone 0.692 uIU/mL (0.465-4.680)
[2025-01-25 12:32] LABS: Percent Iron Saturation 27 % (20-50)
[2025-01-25 12:39] LABS: Free T4 Free Thyroxine 1.89 ng/dL (0.78-2.19)
[2025-01-28 20:53] LABS: Amphetamines NEGATIVE ng/mL (<500); Barbiturates NEGATIVE ng/mL (<300); Benzodiazepines NEGATIVE ng/mL (<100); Cocaine Metabolite NEGATIVE ng/mL (<150); Marijuana Metabolite NEGATIVE ng/mL (<20); Methadone Metabolite NEGATIVE ng/mL (<100); Opiates NEGATIVE ng/mL (<100); Oxidant NEGATIVE mcg/mL (<200); PCP NEGATIVE ng/mL (<25); Specific Gravity 1.006 (> or = 1.003); pH 5.3 (4.5-9.0)
== END 2025-01-25 10:29 | disposition home or self-care (01) ==
LOC: ANHLAB 10:30
PROVIDERS: PCP Nurse Practitioner Family; Referring Provider Nurse Practitioner Family; Visit Provider Internal Medicine Endocrinology, Diabetes & Metabolism
DX: E03.9 Hypothyroidism, unspecified (principal); E56.9 Vitamin deficiency, unspecified; F41.9 Anxiety disorder, unspecified; M47.812 Spondylosis without myelopathy or radiculopathy, cervical region; G89.4 Chronic pain syndrome; M25.50 Pain in unspecified joint; E61.1 Iron deficiency; Z79.899 Other long term (current) drug therapy; Z86.79 Personal history of other diseases of the circulatory system
CPT/HCPCS: 36415; 80053; 80061; 80307; 82728; 83036; 83540; 83550; 84439; 84443; 85025

== ENCOUNTER 2025-08-25 11:21 | Outpatient (CLI) | payer MEDICARE, SELFPAY ==
--- NOTE | ~2025-08-25 | DEXA_ITS ---
Bone Density Report Name: ANDREW DUCKWORTH Age: 70 Sex: Female Ethnicity: White Date of : 1955 Indication: postmenopausal; screening for osteoporosis; height loss; Referring Provider: Abi Lucas Study: Bone densitometry was performed. Exam Date: August 25, 2025 Accession number: [id number] Bone Density: Region BMD T-score Z-score Classification AP Spine(L1-L4) 0.834 -1.9 0.1 Osteopenia Femoral Neck (Left) 0.573 -2.5 -0.8 Osteoporosis Total Hip (Left) 0.660 -2.3 -0.9 Osteopenia Femoral Neck (Right) 0.622 -2.0 -0.3 Osteopenia Total Hip (Right) 0.633 -2.5 -1.1 Osteoporosis Total Hip Mean 0.646 -2.4 -1.0 Osteopenia World Health Organization criteria for BMD impression classify patients as: Normal (T-score at or above -1.0), Osteopenia (T-score between -1.0 and -2.5), or Osteoporosis (T-score at or below -2.5). 10-year Fracture Risk: FRAX not reported because: Some T-score for Spine Total or Hip Total or Femoral Neck at or below -2.5 Clinical Information Provided by Patient: Has used the following medications: Vitamin D, Calcium Patient maximum height was 65 Menopause Age: 54 No regular weight bearing exercise Does not regularly consume dairy products Onset of menses at age 14 Number of children 2 Impression: The patient has osteoporosis, based on the Right Total Hip T-score. Discussion: INCREASED RISK OF FRACTURE. BONE DENSITY IS UNDESIRABLY LOW AT ONE OR MORE SKELETAL SITES, CONSISTENT WITH POSTMENOPAUSAL OSTEOPOROSIS. This patient's lowest T-score meets the World Health Organization's (WHO) criteria for osteoporosis at one or more sites (T-score -2.5 or below). In untreated patients, the risk of osteoporotic fracture increases approximately two-fold for each 1.0 SD decrease in T-score. Low bone density is not the only risk factor for fracture; also consider factors such as patient's age, frailty or poor health, risk of falling, risk of injury, previous osteoporotic fracture, family history of osteoporosis, cigarette smoking, low body weight, etc. Not everyone with low bone mineral density has osteoporosis; osteomalacia and other metabolic bone disorders should also be considered. Patients who have osteoporosis should be evaluated for specific diseases and conditions (secondary causes) that may cause or contribute to bone loss. The [place] Association of Clinical Endocrinologists (AACE) and National Osteoporosis Foundation (NOF) recommend pharmacologic intervention for all postmenopausal women whose T-score is in this range. The patient should follow a healthful lifestyle (good nutrition with adequate calcium and vitamin D, and appropriate weight-bearing exercise). Follow-Up: Consider a repeat BMD and Vertebral Fracture Assessment (VFA) exam in 2 years or sooner if medically necessary, to reassess this patient's status. Reported by: SAMIR on 08/25/2025 11:43:00 AM. Reviewed, dictated and finalized at location A.
== END 2025-08-25 11:22 | disposition home or self-care (01) ==
LOC: MICIMG 11:22
PROVIDERS: PCP Nurse Practitioner Family; Visit Provider Internal Medicine Endocrinology, Diabetes & Metabolism
DX: M81.0 Age-related osteoporosis without current pathological fracture (principal); M85.89 Other specified disorders of bone density and structure, multiple sites; Z78.0 Asymptomatic menopausal state
CPT/HCPCS: 77080

== ENCOUNTER 2025-08-25 12:10 | Outpatient (CLI) | payer MEDICARE, SELFPAY ==
[2025-08-25 12:43] LABS: Hematocrit 42.2 % (37.0-47.0); Hemoglobin 13.7 g/dL (12.0-15.0); Immature Granulocyte Percent A 0.2 % (0-0.5); Lymphocytes Absolute Auto 1.57 K/mm3 (0.9-3.2); Mean Corpuscular HGB Conc 32.5 g/dl (32-36); Mean Corpuscular Hemoglobin 32.7 pg (26-34); Mean Corpuscular Volume 100.7 fl (80-100); Nucleated Red Blood Cells Absolute Auto 0.000 K/mm3 (0.0-0.012); Nucleated Red Blood Cells Perc 0.0 % (0.0-0.2); Platelet Count Result 230 k/mm3 (150-375); Red Blood Count 4.19 M/mm3 (4.2-5.4); White Blood Count 5.6 K/mm3 (4.5-10.0)
[2025-08-25 13:12] LABS: Iron 82 ug/dL (37-170)
[2025-08-25 13:14] LABS: Alanine Aminotransferase 43 U/L (6-35); Albumin Level 4.3 g/dL (3.5-5.1); Alkaline Phosphatase 91 U/L (38-126); Anion Gap 4 mmol/L (4-12); Aspartate Amino Transferase 58 U/L (14-36); Bilirubin,Total 0.5 mg/dL (0.2-1.3); Blood Urea Nitrogen 22 mg/dL (7-17); Calcium 10.2 mg/dL (8.4-10.2); Carbon Dioxide 27 mmol/L (22-30); Chloride 105 mmol/L (98-107); Cholesterol 197 mg/dL (0-200); Estimated Glomerular Filt Rate > 60; Glucose 94 mg/dL (65-110); HDL Direct 84 mg/dL; Potassium 4.1 mmol/L (3.4-5.0); Sodium 136 mmol/L (137-145); Total Protein 7.7 g/dL (6.3-8.2); Triglycerides 66 mg/dL (<150)
[2025-08-25 13:23] LABS: Percent Iron Saturation 24 % (20-50)
[2025-08-25 13:44] LABS: Thyroid Stimulating Hormone 2.370 uIU/mL (0.465-4.680)
[2025-08-25 13:53] LABS: Ferritin 65.30 ng/mL (11.1-264)
== END 2025-08-25 12:11 | disposition home or self-care (01) ==
PROVIDERS: PCP Nurse Practitioner Family; Visit Provider Internal Medicine Endocrinology, Diabetes & Metabolism
DX: E03.9 Hypothyroidism, unspecified (principal); E55.9 Vitamin D deficiency, unspecified; F32.9 Major depressive disorder, single episode, unspecified; F41.9 Anxiety disorder, unspecified; I48.91 Unspecified atrial fibrillation; M85.80 Other specified disorders of bone density and structure, unspecified site; D50.9 Iron deficiency anemia, unspecified
CPT/HCPCS: 36415; 80053; 80061; 82306; 82728; 83540; 83550; 84443; 85025

== ENCOUNTER 2025-08-27 17:43 | Outpatient (CLI) | payer MEDICARE, SELFPAY ==
[2025-08-27 18:29] LABS: Parathyroid Intact 43.5 pg/mL (14.5-75.2)
--- OUTSIDE RECORDS SUMMARY | 2025-08-27 21:13 | XMS_ITS | Clinical Summary ---
Author Organization [facility] Address [address] [place] [address] Care Team Providers Care Personal Development Educator Name Role Phone Unavailable Primary Care Provider [...] Scan (General) 2022 COVID-19 Vaccine ( - 2024-2 6 season) 2025 Influenza Adult (#1) 2025 RSV Immunization or 60+ Years (1 - 1-dose 75+ series) 2032 Hepatitis A Vaccines Aged Out No long er eligible based on patient's age to complete this topic Meningococcal B Vaccine Aged Out No l onger eligible based on patient's age to complete this topic Meningococcal Vaccine Aged Out No iam justice eligible based on patient's age to complete this topic RSV Immunizations Under 20 Months Aged Out No longer eligible based on patient's age to complete this topic
--- OUTSIDE RECORDS SUMMARY | 2025-08-27 21:13 | XMS_ITS | Clinical Summary ---
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
--- OUTSIDE RECORDS SUMMARY | 2025-08-27 21:13 | XMS_ITS | Clinical Summary ---
Author Organization [facility] [employer] Address [address] [place] [address] Care Team Providers Care Nurse Transition Name Role Phone Jules Juarez DO Primary Care Provider [phone] Source Comments [facility],non-owned Affiliates and Associated Physician Practices is amultiple site organization consisting of ambulatory clinics and hospital sitesin [place], [place], [place] and [place]. This disclosure is being madepursuant to the Care Everywhere program and may not contain all information available regarding this patient. 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 06/14/2021 passed out and had [...] 12:26 PM CDT Height 162.6 cm (5' 4) 06/14/2021 12:26 PM CDT Body Mass Index [...] 2007 ZOSTER VACCINE (1 of 2) 2007 SCREENING FOR DIABETES 06/14/2024 06/14/2021 DEPRESSION SCREENING 09/18/2024 COVID-19 VACCINE (1 - 2024-2 6 season) 2025 INFLUENZA VACCINE (#1) 2025 Respiratory Syncytial Virus (RSV) Vaccine Pt: [...] - 26 mg/dL 06/14/2021 3:39 PM CDT [facility] Creatinine 0.78 0.56 - 0.96 mg/dL 06/14/2021 3:39 PM CDT [facility] Sodium 142 136 - 145 mmol/L 06/14/2021 3:39 PM CDT [facility] Potassium 4.0 3.5 - 4.5 mmol/L 06/14/2021 3:39 PM T [facility] Chloride 104 98 - 107 mmol/L 06/14/2021 3:39 PM [facility] CO2 28 22 - 29 mmol/L 06/14/2021 3:39 PM [facility] Glucose 93 70 - 115 mg/dL 06/14/2021 3:39 PM [facility] Calcium 10.0 8.4 - 10.2 mg/dL 06/14/2021 3:39 PM [facility] Protein Total 7.5 6.0 - 8.3 g/dL 06/14/2021 3:39 PM [facility] Albumin 4.1 3.4 - 5.0 g/dL 06/14/2021 3:39 PM [facility] Bilirubin Total 0.5 0.2 - 1.2 mg/dL 06/14/2021 3:39 PM [facility] Alkaline Phosphatase 68 40 - 150 U/L 06/14/2021 3:39 PM [facility] ALT 26 5 - 55 U/L 06/14/2021 3:39 PM [facility] AST 33 5 - 34 U/L 06/14/2021 3:39 PM [facility] Anion Gap 14 8 - 18 06/14/2021 3:39 PM [facility] BUN/Creatinine Ratio 27(H) 7 - 23 06/14/2021 3:39 PM [facility] Osmolality Calculated 297 270 - 300 mOsm/kg 06/14/2021 3:39 PM [facility] Albumin/Globulin Ratio 1.2 1.1 - 2.3 06/14/2021 3:39 PM [facility] eGFR by CKD-EPI 80(L) >=90 mL/min/1.7 3 m2 06/14/2021 3:39 PM [facility] Blood BLOOD SPECIMEN / Unknown Lab Venipuncture / Unknown 06/14/2021 2:02 PM CDT 06/14/2021 3:10 PM [facility] us Abbey Knapp MD LAB - CHEMISTRY ORDERAB LES Final Result [facility] [address] [place] [address], [facility] [phone] from Last 3 Months or Most Recently Relevant to Health Maintenance Insurance [employer] Care Teams Nurse Transition Relationship Specialty Start Date End Date Jules Juarez DO [address] [place] [address] PCP - General Internal Medicine 06/09/21
== END 2025-08-27 17:44 | disposition home or self-care (01) ==
PROVIDERS: PCP Nurse Practitioner Family; Visit Provider Internal Medicine Endocrinology, Diabetes & Metabolism
DX: M81.0 Age-related osteoporosis without current pathological fracture (principal)
CPT/HCPCS: 36415; 83970

== ENCOUNTER 2025-08-28 11:06 | Outpatient (RCR) | payer MEDICARE, SELFPAY ==
[2025-08-29 14:20] LABS: Creatinine 24 Hour Urine 1.0 gm/24 (0.8-1.8); Total Volume 24 Hour Urine 1900 ml
[2025-08-30 10:09] LABS: Calcium, Urine 21.9 mg/dL (Not Estab.)
== END 2025-08-28 13:39 | disposition home or self-care (01) ==
LOC: ANHLAB 11:06
PROVIDERS: PCP Nurse Practitioner Family; Visit Provider Internal Medicine Endocrinology, Diabetes & Metabolism
DX: M81.0 Age-related osteoporosis without current pathological fracture (principal)
CPT/HCPCS: 81050; 82340; 82570

== ENCOUNTER 2025-09-17 11:57 | Outpatient (CLI) | payer MEDICARE, SELFPAY ==
--- OUTSIDE RECORDS SUMMARY | 2025-09-17 12:01 | XMS_ITS | Clinical Summary ---
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 Member Subscriber Plan / Payer (Ef fective 2022-Present) Name:Sunni Haro Relation to Subscriber:Self Name:Sunni Haro Payer ID:[id number] Group ID:Not on file Type:[employer] Address: [facility] [address] [facility] [place] [address] Care Teams Ukrainian Folk Arts Instructor Relationship Specialty Start Date End Date Tino Paula MD PCP - General Family Practice 03/16/23
--- OUTSIDE RECORDS SUMMARY | 2025-09-17 12:01 | XMS_ITS | Clinical Summary ---
Author Organization [facility] [employer] Address [address] [place] [address] Care Team Providers Care Fountain Worker Name Role Phone Jules Juarez DO Primary Care Provider [phone] Source Comments [facility],non-owned Affiliates and Associated Physician Practices is amultiple site organization consisting of ambulatory clinics and hospital sitesin [place], [place], [place] and [place]. This disclosure is being madepursuant to the Care Everywhere program and may not contain all information available regarding this patient. 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 06/14/2021 passed out and had [...] - 26 mg/dL 06/14/2021 3:39 PM CDT [facility] Creatinine 0.78 0.56 - 0.96 mg/dL 06/14/2021 3:39 PM CDT [facility] Sodium 142 136 - 145 mmol/L 06/14/2021 3:39 PM CDT [facility] Potassium 4.0 3.5 - 4.5 mmol/L 06/14/2021 3:39 PM T [facility] Chloride 104 98 - 107 mmol/L 06/14/2021 3:39 PM [facility] CO2 28 22 - 29 mmol/L 06/14/2021 3:39 PM [facility] Glucose 93 70 - 115 mg/dL 06/14/2021 3:39 PM [facility] Calcium 10.0 8.4 - 10.2 mg/dL 06/14/2021 3:39 PM [facility] Protein Total 7.5 6.0 - 8.3 g/dL 06/14/2021 3:39 PM [facility] Albumin 4.1 3.4 - 5.0 g/dL 06/14/2021 3:39 PM [facility] Bilirubin Total 0.5 0.2 - 1.2 mg/dL 06/14/2021 3:39 PM [facility] Alkaline Phosphatase 68 40 - 150 U/L 06/14/2021 3:39 PM [facility] ALT 26 5 - 55 U/L 06/14/2021 3:39 PM [facility] AST 33 5 - 34 U/L 06/14/2021 3:39 PM [facility] Anion Gap 14 8 - 18 06/14/2021 3:39 PM [facility] BUN/Creatinine Ratio 27(H) 7 - 23 06/14/2021 3:39 PM [facility] Osmolality Calculated 297 270 - 300 mOsm/kg 06/14/2021 3:39 PM [facility] Albumin/Globulin Ratio 1.2 1.1 - 2.3 06/14/2021 3:39 PM [facility] eGFR by CKD-EPI 80(L) >=90 mL/min/1.7 3 m2 06/14/2021 3:39 PM [facility] Blood BLOOD SPECIMEN / Unknown Lab Venipuncture / Unknown 06/14/2021 2:02 PM CDT 06/14/2021 3:10 PM [facility] us Abbey Knapp MD LAB - CHEMISTRY ORDERAB LES Final Result [facility] [address] [place] [address], [facility] [phone] from Last 3 Months or Most Recently Relevant to Health Maintenance [place] [facility] [place] [facility] [id number] [place] [id number] Care Teams Fountain Worker Relationship Specialty Start Date End Date Jules Juarez DO [address] [place] [address] PCP - General Internal Medicine 06/09/21
[2025-09-17 13:59] LABS: Vitamin B12 > 1000.0 pg/mL (239-931)
== END 2025-09-17 11:58 | disposition home or self-care (01) ==
PROVIDERS: PCP Nurse Practitioner Family; Visit Provider Internal Medicine Endocrinology, Diabetes & Metabolism
DX: R71.8 Other abnormality of red blood cells (principal)
CPT/HCPCS: 36415; 82607; 82746